=== PATIENT | female | born 1945 ===

== ENCOUNTER 2018-03-13 12:13 | Emergency (ER) | payer MEDICARE ==
[2018-03-13 12:13] VITALS: BMI 43.5
--- NOTE | 2018-03-13 14:23 | ED PDOC ---
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 She states since then, she has had fevers every night. Otherwise, denies back injury and vomiting. denies urinary symptoms PMD: Taiwo Bagley Past Medical History Reviewed: Historical Data, Nursing Documentation, Vital Signs Vital Signs: Last Vital Signs Temp 97 F L 03/13/18 12:29 Pulse 80 03/13/18 12:29 Resp 18 03/13/18 12:29 BP 145/77 03/13/18 12:29 Pulse Ox 95 03/13/18 12:29 - Medical History PMH: Asthma, Diabetes, HTN - Surgical History Surgical History: Other surgeries: right eye surgery - Family History Family History: States: Unknown Family Hx - Living Arrangements Living Arrangements: With Family - Social History Current smoker - smoking cessation education provided: No Alcohol: None Drugs: Denies - Home Medications Home Medications: Ambulatory Orders Medication Instructions Recorded Aspirin [Ecotrin] 81 mg PO DAILY 12/20/16 Carvedilol [Coreg] 12.5 mg PO BID 12/20/16 Fluticasone/Salmeterol [Advair 1 puff IH DAILY PRN 12/20/16 250-50 Diskus] Pentoxifylline [Pentoxil] 400 mg PO TID 12/20/16 Potassium Chloride [Klor-Con 10] 10 meq PO DAILY 12/20/16 RX: Furosemide 40 mg PO DAILY 12/20/16 SITagliptin [Januvia] 50 mg PO DAILY 12/20/16 - Allergies Allergies/Adverse Reactions: Allergies Allergy/AdvReac Type Severity Reaction Status Date / Time No Known Allergies Allergy Verified 07/08/14 11:55 Review of Systems ROS Statement: Except As Marked, All Systems Reviewed And Found Negative Constitutional: Positive for: Fever Gastrointestinal: Positive for: Abdominal Pain (right flank). Negative for: Vomiting Physical Exam - Reviewed Nursing Documentation Reviewed: Yes Vital Signs Reviewed: Yes - Physical Exam Appears: Positive for: No Acute Distress (but pt is obese) Head Exam: Positive for: ATRAUMATIC, NORMOCEPHALIC Skin: Positive for: Normal Color, Warm, Dry Eye Exam: Positive for: Normal appearance ENT: Positive for: Normal ENT Inspection Neck: Positive for: Normal, Painless ROM, Supple Cardiovascular/Chest: Positive for: Regular Rate, Rhythm Respiratory: Positive for: Normal Breath Sounds. Negative for: Accessory Muscle Use, Respiratory Distress Gastrointestinal/Abdominal: Positive for: Soft, Tenderness (to right flank with palpation; pain with movement of abdomen) Back: Positive for: Normal Inspection Extremity: Positive for: Normal ROM Neurologic/Psych: Positive for: Alert, Oriented (x3) - Laboratory Results Result Diagrams: 03/13/18 14:22 - ECG O2 Sat by Pulse Oximetry: 95 (RA) Pulse Ox Interpretation: Normal Medical Decision Making Medical Decision Making: Time: 1422 Initial Impression: flank pain, rule out infection/stone/fracture Initial Plan: --CT Abd & Pelvis --CMP --CBC with differential --Blood culture --Urine culture --Urinalysis 1500 Pt care endorsed to Dr. Sparks pending workup. Scribe Attestation: Documented by Laurel Puga, acting as a scribe for Reji Negro MD. Provider Scribe Attestation: All medical record entries made by the Scribe were at my direction and personally dictated by me. I have reviewed the chart and agree that the record accurately reflects my personal performance of the history, physical exam, medical decision making, and the department course for this patient. I have also personally directed, reviewed, and agree with the discharge instructions and disposition. Disposition - Clinical Impression Clinical Impression: Flank pain - Patient ED Disposition Is Patient to be Admitted: Transfer of Care - Disposition Disposition: Transfer of Care Disposition Time: 15:00 Condition: STABLE Forms: [facility] (Djiboutian) Patient Signed Over To: Sarah Sparks
[2018-03-13 14:33] LABS: SQUAMOUS EPITHIAL 2 /hpf (0-5); URINE BACTERIA OCC (<OCC); URINE BILIRUBIN NEGATIVE (NEGATIVE); URINE BLOOD NEGATIVE (NEGATIVE); URINE CLARITY CLEAR (Clear); URINE COLOR YELLOW (YELLOW); URINE GLUCOSE (UA) NEG (Normal); URINE LEUKOCYTE ESTERASE NEG Leu/uL (Negative); URINE PROTEIN NEGATIVE (NEGATIVE); URINE UROBILINOGEN 0.2-1.0 mg/dL (0.2-1.0)
[2018-03-13 14:37] LABS: BASO # 0.1 K/uL (0.0-0.2); BASO % 1.3 % (0.0-2.0); EOS # 0.2 K/uL (0.0-0.7); EOS % 3.4 % (0.0-4.0); HEMOGLOBIN 11.9 g/dL (12.0-16.0); LYMPH # 1.5 K/uL (1.0-4.3); LYMPH % 28.1 % (20.0-40.0); MEAN CELL VOLUME 89.1 fl (81.0-99.0); MEAN CORPUSCULAR HEMOGLOBIN 29.9 pg (27.0-31.0); MEAN CORPUSCULAR HGB CONC 33.6 g/dL (33.0-37.0); MEAN PLATELET VOLUME 8.4 fl (7.2-11.7); MONO # 0.6 K/uL (0.0-0.8); MONO % 10.4 % (0.0-10.0); NEUT # 3.1 K/uL (1.8-7.0); NEUT % 56.8 % (50.0-75.0); NRBC % 0.1 % (0.0-0.0); RBC 3.99 Mil/uL (3.80-5.20); RED CELL DISTRIBUTION WIDTH 14.7 % (11.5-14.5); WHITE BLOOD COUNT 5.5 K/uL (4.8-10.8)
[2018-03-13 14:41] LABS: ALBUMIN 3.6 g/dL (3.5-5.0); BLOOD UREA NITROGEN 10 mg/dl (7-17); GFR NON-AFRICAN AMERICAN > 60
[2018-03-13 15:00] LABS: ALT/SGPT 18 U/L (9-52); AST/SGOT 30 U/L (14-36)
--- NOTE | 2018-03-13 15:22 | ED PDOC ---
- Laboratory Results Result Diagrams: 03/13/18 14:22 03/13/18 14:22 - ECG O2 Sat by Pulse Oximetry: 95 (RA) Medical Decision Making Medical Decision Making: Time: 15:00 Patient care endorsed by Dr. Childs to Dr. Sparks pending a work up and CT for right flank pain, questionable trauma vs. stone. 1738 Labs reviewed and are within normal limits. Pt reports improvement of pain on reevaluation. CT abdomen shows non-incarcerated right sided hernia, and pt inf ormed of results. She states she will follow up with her PMD in one week, and is advised to take Motrin or Tylenol for pain. Pt is to be picked up by daughter who will assist her at home. ----- Scribe Attestation: Documented by Young Gannon, acting as a scribe for Sarah Sparks MD Provider Scribe Attestation: All medical record entries made by the Scribe were at my direction and personally dictated by me. I have reviewed the chart and agree that the record accurately reflects my personal performance of the history, physical exam, medi tien decision making, and the department course for this patient. I have also personally directed, reviewed, and agree with the discharge instructions and disposition. Disposition - Clinical Impression Clinical Impression: Flank pain, Abdominal pain - POA Present On Arrival: None - Disposition Disposition: Routine/Home Disposition Time: 17:38 Condition: STABLE Additional Instructions: Take Tylenol or Motrin as needed for pain. Follow up with primary doctor swati heller followup of pain and night fevers. Return to the emergency department if pain worsens or if new symptoms develop. Instructions: Acute Abdomen (Belly Pain), Adult (DC) Forms: [facility] (Lao) Print Language: CROATIAN
--- NOTE | 2018-03-13 16:46 | CT ---
Date of service: 03/13/2018 PROCEDURE: CT Abdomen and Pelvis without intravenous contrast HISTORY: abd pain COMPARISON: Chest CT without contrast 01/04/2017. TECHNIQUE: Technique. Contrast dose: None Radiation dose: Total exam DLP = 826.61 mGy-cm. This CT exam was performed using one or more of the following dose reduction techniques: Automated exposure control, adjustment of the mA and/or kV according to patient size, and/or use of iterative reconstruction technique. FINDINGS: LOWER THORAX: Cardiomegaly reiterated. Small hiatal hernia again evident. No pleural or pericardial effusion or infiltrate. LIVER: Upper limits normal liver size. No focal mass appreciable. GALLBLADDER AND BILE DUCTS: Unremarkable. PANCREAS: Unremarkable. No gross lesion or ductal dilatation. SPLEEN: Unremarkable. ADRENALS: Unremarkable. No mass. KIDNEYS AND URETERS: No radiodense urolithiasis, perinephric fluid collection or obstructive uropathy is appreciate bilaterally. The bilateral ureters appear normal caliber overall. VASCULATURE: Unremarkable. No aortic aneurysm. BOWEL: Stomach is collapsed and poorly evaluated. Subcutaneous fat deposition may reflect chronic inflammatory process. Clinically correlate further. Mildly prominent retained fecal material scattered throughout the proximal and mid large-bowel segments, mild otherwise. No bowel obstruction evident. Small bowel appears collapsed diffusely and is unremarkable appearing overall. There is right lower quadrant ventral abdominal hernia appreciated with the opening measuring approximately 4 cm greatest dimension involving an apparent distal small bowel loop without obstruction. No local reaction fluid collection or free intra peritoneal gas. No incarceration pattern appreciable. APPENDIX: Unremarkable. Normal appendix. PERITONEUM: Unremarkable. No free fluid. No free air. LYMPH NODES: Unremarkable. No enlarged lymph nodes. BLADDER: Distended but thin and smooth walled. REPRODUCTIVE: Fibroid uterine changes. BONES: No acute fracture. OTHER FINDINGS: None. IMPRESSION: 1. There is a small ventral abdominal hernia similar to but not definitive for a spigelian hernia at the right lower quadrant anterior abdominal wall essentially in the pelvis involving a short segment of small bowel without pattern of incarceration appreciable. No bowel obstruction associated. See discussion above. 2. Moderate overall fecal retention in the colon. 3. Upper limits normal size liver. 4. Fibroid uterus. 5. No radiodense urolithiasis, perinephric fluid collection or obstructive uropathy is appreciate bilaterally. The bilateral ureters appear normal caliber overall.
[2018-03-13 18:19] VITALS: BP 127/83; PULSE 71; RESP 17; TEMP 98.2
[2018-03-16 13:51] VITALS: O2SAT 95
== END 2018-03-13 18:18 | disposition home or self-care (01) ==
LOC: H.ER 12:13
DX: R10.9 Unspecified abdominal pain (principal); M54.9 Dorsalgia, unspecified; K46.9 Unspecified abdominal hernia without obstruction or gangrene; E11.9 Type 2 diabetes mellitus without complications
CPT/HCPCS: 74176; 80053; 81003; 85025; 87040; 87086; 96374; 99283; J2405

== ENCOUNTER 2018-03-14 09:53 | Inpatient (IN) | payer MEDICARE ==
[2018-03-14 10:00] VITALS: BMI 39.4
[2018-03-14 10:25] LABS: BASO # 0.1 K/uL (0.0-0.2); BASO % 0.9 % (0.0-2.0); EOS # 0.1 K/uL (0.0-0.7); EOS % 1.9 % (0.0-4.0); HEMOGLOBIN 12.4 g/dL (12.0-16.0); LYMPH # 1.1 K/uL (1.0-4.3); LYMPH % 17.8 % (20.0-40.0); MEAN CORPUSCULAR HEMOGLOBIN 29.6 pg (27.0-31.0); MEAN CORPUSCULAR HGB CONC 32.5 g/dL (33.0-37.0); MEAN PLATELET VOLUME 7.7 fl (7.2-11.7); MONO # 0.5 K/uL (0.0-0.8); MONO % 8.5 % (0.0-10.0); NEUT # 4.5 K/uL (1.8-7.0); NEUT % 70.9 % (50.0-75.0); RBC 4.2 Mil/uL (3.80-5.20); RED CELL DISTRIBUTION WIDTH 14.7 % (11.5-14.5); WHITE BLOOD COUNT 6.3 K/uL (4.8-10.8)
[2018-03-14 10:41] LABS: ALBUMIN 3.7 g/dL (3.5-5.0); ALT/SGPT 23 U/L (9-52); AST/SGOT 22 U/L (14-36); BLOOD UREA NITROGEN 8 mg/dl (7-17); CALCIUM 9.1 mg/dL (8.4-10.2); GFR NON-AFRICAN AMERICAN > 60
--- NOTE | 2018-03-14 10:50 | ED PDOC ---
HPI: Abdomen Time Seen by Provider: 03/14/18 10:09 Chief Complaint (Nursing): Abdominal Pain Chief Complaint (Provider): Right flank pain History Per: Patient History/Exam Limitations: no limitations Onset/Duration Of Symptoms: Days Outside of [place] travel?: No Current Symptoms Are (Timing): Still Present Location Of Pain/Discomfort: Other (right flank) Additional History Per: Patient Additional Complaint(s): 72yo female, history of diabetes, hypertension, comes to ER reporting right sided flank/abdominal pain with associated nausea and vomiting. Patient was seen yesterday for same complaints and discharged home. Patient denies any fever, chills, diarrhea or urinary symptoms. Past Medical History Reviewed: Historical Data, Nursing Documentation, Vital Signs Vital Signs: Last Vital Signs Temp 98.7 F 03/14/18 10:22 Pulse 98 H 03/14/18 09:59 Resp 20 03/14/18 09:59 BP 131/72 03/14/18 09:59 Pulse Ox 75 L 03/14/18 09:59 - Medical History PMH: Asthma, Diabetes, HTN - Surgical History Surgical History: - Family History Family History: States: Unknown Family Hx - Home Medications Home Medications: Ambulatory Orders Medication Instructions Recorded Carvedilol [Coreg] 12.5 mg PO Q12 12/20/16 Pentoxifylline [Pentoxil] 400 mg PO Q8 12/20/16 SITagliptin [Januvia] 50 mg PO DAILY 12/20/16 Furosemide [Lasix] 20 mg PO DAILY 03/14/18 Lovastatin 10 mg PO HS 03/14/18 Omeprazole 40 mg PO DAILY 03/14/18 traMADol [Ultram] 50 mg PO Q4 PRN 03/14/18 - Allergies Allergies/Adverse Reactions: Allergies Allergy/AdvReac Type Severity Reaction Status Date / Time No Known Allergies Allergy Verified 07/08/14 11:55 Review of Systems ROS Statement: Except As Marked, All Systems Reviewed And Found Negative Constitutional: Negative for: Fever, Chills Gastrointestinal: Positive for: Nausea, Vomiting, Abdominal Pain. Negative for: Diarrhea Genitourinary Female: Negative for: Dysuria Physical Exam - Reviewed Nursing Documentation Reviewed: Yes Vital Signs Reviewed: Yes - Physical Exam Appears: Positive for: Non-toxic, No Acute Distress Head Exam: Positive for: ATRAUMATIC, NORMAL INSPECTION, NORMOCEPHALIC Skin: Positive for: Normal Color, Warm, DRY Eye Exam: Positive for: Normal appearance Neck: Positive for: Supple Cardiovascular/Chest: Positive for: Regular Rate, Rhythm Respiratory: Positive for: Decreased Breath Sounds. Negative for: Respiratory Distress Gastrointestinal/Abdominal: Positive for: Soft, Tenderness (right flank tenderness) Back: Positive for: Normal Inspection Extremity: Positive for: Normal ROM. Negative for: Pedal Edema Neurologic/Psych: Positive for: Alert, Oriented. Negative for: Motor/Sensory Deficits - Laboratory Results Result Diagrams: 03/14/18 10:18 03/14/18 10:18 - ECG O2 Sat by Pulse Oximetry: 75 Medical Decision Making Medical Decision Making: Impression: Right sided abdominal pain Plan: * UDip * CMP * CBC 11:10 XR abdomen ordered to r/o obstruction Scribe Attestation: Documented by Gem Rendon, acting as a scribe for Tano Ascencio MD. Provider Scribe Attestation: All medical record entries made by the Scribe were at my direction and personally dictated by me. I have reviewed the chart and agree that the record accurately reflects my personal performance of the history, physical exam, medical decision making, and the department course for this patient. I have also personally directed, reviewed, and agree with the discharge instructions and disposition. Disposition - Clinical Impression Clinical Impression: Abdominal pain, Exacerbation of asthma - Patient ED Disposition Is Patient to be Admitted: Yes - Disposition Disposition Time: 13:48 Condition: FAIR Forms: [facility] (Honduran) - Pt Status Changed To: Hospital Disposition Of: Observation - POA Present On Arrival: None
--- NOTE | 2018-03-14 12:20 | CP.PCM.CON ---
<Andria Zavala - Last Filed: 03/14/18 12:25> History of Present Illness - History of Present Illness History of Present Illness: Surgery Consult: Dr. Campos Pt is a 72F with PMHx significant for DM, HTN, HLD & asthma who presents to [facility] with complaints of R groin/back pain x 3 weeks. Pt states that 3 weeks ago, she tripped and caught herself from falling and thinks that she may have twisted her back. Since then she has been having sharp pain in the R groin that radiates to her back. She also admits to subjective fevers only at night. Yesterday, pt states her pain got worse and she came to the ER. She had a CT abdomen/pelvis done at the time and it showed a small R ventral/spigelian hernia. However, pt felt better a few hours later and she was DC home. Overnight/this morning pt reports increasing pain with one episode of non-bloody, non-bilious vomiting so she decided to come back to the ER. Surgery called to evaluate. Currently, pt is resting comfortably but admits to continued pain in the R groin that radiates to her back. She denies any more episodes of vomiting. She states her last BM was yesterday and admits to flatus. Pt states she's usually constipated and therefore doesn't have regular BMs. Denies F/C, N/V, chest pain or SOB at this time. PMHx: HTN, DM, HLD, asthma PSHx: x 2 SocialHx: denies smoking, EtOH/drugs NKDA Review of Systems - Review of Systems All systems: reviewed and no additional remarkable complaints except (as per HPI) Past Patient History - Past Social History Smoking Status: Never Smoked - CARDIAC Hx Hypertension: Yes - PULMONARY Hx Asthma: Yes - ENDOCRINE/METABOLIC Hx Diabetes Mellitus Type 2: Yes - PSYCHIATRIC Hx Substance Use: No - SURGICAL HISTORY Hx Surgeries: Yes Hx Section: Yes (x2) - ANESTHESIA Hx Anesthesia: Yes Hx Anesthesia Reactions: No Meds Allergies/Adverse Reactions: Allergies Allergy/AdvReac Type Severity Reaction Status Date / Time No Known Allergies Allergy Verified 07/08/14 11:55 Physical Exam - Constitutional Appears: Well, No Acute Distress - Head Exam Head Exam: ATRAUMATIC, NORMOCEPHALIC - Eye Exam Eye Exam: Normal appearance - ENT Exam ENT Exam: Mucous Membranes Moist - Respiratory Exam Respiratory Exam: NORMAL BREATHING PATTERN - Cardiovascular Exam Cardiovascular Exam: RRR - GI/Abdominal Exam GI & Abdominal Exam: Soft, Tenderness (in the R groin especially over the iliac crest & R flank. No palpable hernia defect appreciated ). absent: Distended, Rebound - Neurological Exam Neurological exam: Alert, Oriented x3 - Skin Skin Exam: Dry, Warm Results - Vital Signs Recent Vital Signs: Last Vital Signs Temp 98.7 F 03/14/18 10:22 Pulse 81 03/14/18 11:20 Resp 20 03/14/18 11:20 BP 154/77 H 03/14/18 11:20 Pulse Ox 75 L 03/14/18 12:05 - Labs Result Diagrams: 03/14/18 10:18 03/14/18 10:18 Labs: Laboratory Results - last 24 hr 03/14/18 03/14/18 10:18 10:18 WBC 6.3 RBC 4.20 Hgb 12.4 Hct 38.2 MCV 91.0 MCH 29.6 MCHC 32.5 L RDW 14.7 H Plt Count 216 MPV 7.7 Neut % (Auto) 70.9 Lymph % (Auto) 17.8 L [place] % (Auto) 8.5 Eos % (Auto) 1.9 Baso % (Auto) 0.9 Neut # (Auto) 4.5 Lymph # (Auto) 1.1 [place] # (Auto) 0.5 Eos # (Auto) 0.1 Baso # (Auto) 0.1 Sodium 139 Potassium 4.9 Chloride 104 Carbon Dioxide 29 Anion Gap 11 BUN 8 Creatinine 0.8 Est GFR ( Amer) > 60 Est GFR (Non-Af Amer) > 60 Random Glucose 132 H Calcium 9.1 Total Bilirubin 0.3 AST 22 ALT 23 Alkaline Phosphatase 115 Total Protein 7.4 Albumin 3.7 Globulin 3.6 Albumin/Globulin Ratio 1.0 Assessment & Plan - Assessment and Plan (Free Text) Assessment: 72F with R groin/flank pain and R ventral hernia as seen on CT Plan: - keep NPO - IVF - pain management - will discuss further recs with Dr. Andres Zavala <Brian Campos - Last Filed: 03/14/18 14:08> History of Present Illness - History of Present Illness History of Present Illness: Patient was seen and examined at the bedside. Agree with resident's note above. Reports flatus and having bowel movements. Physical Exam - GI/Abdominal Exam Additional comments: soft, tender in the lower abdomen, ND, BS+, no rebound, no guarding, obese, well healed scars in the lower abdomen Results - Vital Signs Recent Vital Signs: Last Vital Signs Temp 98.7 F 03/14/18 10:22 Pulse 78 03/14/18 13:23 Resp 20 03/14/18 11:20 BP 154/77 H 03/14/18 11:20 Pulse Ox 75 L 03/14/18 13:48 - Labs Result Diagrams: 03/14/18 10:18 03/14/18 10:18 Labs: Laboratory Results - last 24 hr 03/14/18 03/14/18 03/14/18 10:18 10:18 12:33 WBC 6.3 RBC 4.20 Hgb 12.4 Hct 38.2 MCV 91.0 MCH 29.6 MCHC 32.5 L RDW 14.7 H Plt Count 216 MPV 7.7 Neut % (Auto) 70.9 Lymph % (Auto) 17.8 L [place] % (Auto) 8.5 Eos % (Auto) 1.9 Baso % (Auto) 0.9 Neut # (Auto) 4.5 Lymph # (Auto) 1.1 [place] # (Auto) 0.5 Eos # (Auto) 0.1 Baso # (Auto) 0.1 pCO2 66 H pO2 53 L HCO3 29.3 H ABG pH 7.32 L ABG Total CO2 36.0 H ABG O2 Saturation 91.1 L ABG Base Excess 5.9 H Chema Test Yes ABG Potassium 4.7 A-a O2 Difference 14.0 Glucose 113 H Lactate 0.4 L FiO2 21.0 Blood Gas Comments Room air,,,,rb Crit Value Read Back N Sodium 139 137.0 Potassium 4.9 Chloride 104 103.0 Carbon Dioxide 29 Anion Gap 11 BUN 8 Creatinine 0.8 Est GFR ( Amer) > 60 Est GFR (Non-Af Amer) > 60 Random Glucose 132 H Calcium 9.1 Total Bilirubin 0.3 AST 22 ALT 23 Alkaline Phosphatase 115 Total Protein 7.4 Albumin 3.7 Globulin 3.6 Albumin/Globulin Ratio 1.0 Arterial Blood Potassium 4.7 Assessment & Plan - Assessment and Plan (Free Text) Plan: - Keep NPO - Admit to medical service - Repeat CT scan with po contrast - IV fluids - Repeat labs in am - Will follow
[2018-03-14 13:00] LABS: ABG ALLEN TEST YES; ARTERIAL BLOOD GAS HCO3 29.3 mmol/L (21-28); ARTERIAL BLOOD GAS O2 SAT 91.1 % (95-98); ARTERIAL BLOOD GAS PCO2 66 mm/Hg (35-45); ARTERIAL BLOOD GAS PH 7.32 (7.35-7.45); ARTERIAL BLOOD GAS PO2 53 mm/Hg (80-100)
[2018-03-14] MEDS ORDERED: Albuterol-Ipratrop 3 mg / 0.5 (3 ml) UD IH STA ×2 (13:03→13:04)
--- NOTE | 2018-03-14 13:44 | RAD ---
Date of service: 03/14/2018 HISTORY: cough COMPARISON: 01/24/2017 FINDINGS: LUNGS: Technically limited. No infiltrate. PLEURA: No significant pleural effusion identified, no pneumothorax apparent. CARDIOVASCULAR: Normal. OSSEOUS STRUCTURES: No significant abnormalities. VISUALIZED UPPER ABDOMEN: Normal. OTHER FINDINGS: None. IMPRESSION: No active disease.
--- NOTE | 2018-03-14 13:51 | RAD ---
Date of service: 03/14/2018 HISTORY: r/o obstruction COMPARISON: No prior. FINDINGS: BOWEL: Mild retained feces. No evidence of bowel obstruction. No hepatic or splenic enlargement. No masses or abnormal intra-abdominal calcifications. No evidence of free intraperitoneal air. BONES: Normal. OTHER FINDINGS: None. IMPRESSION: No active disease.
[2018-03-14] MEDS ORDERED: Albuterol-Ipratrop 3 mg / 0.5 (3 ml) UD ONE (13:54)
[2018-03-14] MEDS ORDERED: Iohexol 240 (50 ml) PO ONE (14:02)
[2018-03-14] MEDS ORDERED: Oxycodone/Acetaminophen 5/325 mg Tab PO PRN (14:44)
--- NOTE | 2018-03-14 15:00 | CP.PCM.HP ---
<OumarMckenzie - Last Filed: 03/14/18 16:51> History of Present Illness - History of Present Illness History of Present Illness: 72 y/o F with hx of DMII, HTN, peripheral artery disease, and Asthma presents to the ED with complaints of right sided flank pain that began 3 weeks ago status post fall from bed. She also reports some nausea & vomitting, but denied any fever, chills or dysuria. She presented to the ED yesterday because the pain worsened. At that time, UA was performed and negative for leukocyte esterase or nitrates, blood culture showed no growth, CT Abd & pelvis showed ventral hernia, CMP was unremarkable, and CBC showed Hgb of 11.9. Patient's pain improved, and she was discharged home. After going home, patient reports her pain worsened again this morning, and she returned to ED. PMD: Dr. Bagley PMH: DMII, HTN, Asthma Home Meds: see below Allergies: None PSurghx: , right eye surgery Famhx: unknown Sochx: never smoked; is a smoker Present on Admission - Present on Admission Any Indicators Present on Admission: No History of DVT/PE: No History of Uncontrolled Diabetes: No Urinary Catheter: No Decubitus Ulcer Present: No Review of Systems - Constitutional Additional comments: denies fever or chills - Cardiovascular Additional comments: denies chest pain - Respiratory Additional comments: denies shortness of breath - Gastrointestinal Gastrointestinal: Constipation - Genitourinary Additional comments: right flank pain, denies dysuria Past Patient History - Past Social History Smoking Status: Never Smoked - CARDIAC Hx Hypertension: Yes - PULMONARY Hx Asthma: Yes - ENDOCRINE/METABOLIC Hx Diabetes Mellitus Type 2: Yes - PSYCHIATRIC Hx Substance Use: No - SURGICAL HISTORY Hx Surgeries: Yes Hx Section: Yes (x2) - ANESTHESIA Hx Anesthesia: Yes Hx Anesthesia Reactions: No Meds Allergies/Adverse Reactions: Allergies Allergy/AdvReac Type Severity Reaction Status Date / Time No Known Allergies Allergy Verified 07/08/14 11:55 Physical Exam - Constitutional Additional comments: SPO2 75 on room air - Head Exam Head Exam: ATRAUMATIC, NORMAL INSPECTION - ENT Exam ENT Exam: Mucous Membranes Moist - Neck Exam Neck exam: Positive for: Full Rom - Respiratory Exam Respiratory Exam: Clear to Auscultation Bilateral - Cardiovascular Exam Cardiovascular Exam: REGULAR RHYTHM, +S1, +S2 - GI/Abdominal Exam Additional comments: large pannus, soft with tenderness to right flank, no rigidity - Extremities Exam Additional comments: hyperpigmentation noted on b/l lower legs - Neurological Exam Neurological exam: Alert, Oriented x3 Results - Vital Signs Recent Vital Signs: Last Vital Signs Temp 98.7 F 03/14/18 10:22 Pulse 78 03/14/18 13:23 Resp 20 03/14/18 11:20 BP 154/77 H 03/14/18 11:20 Pulse Ox 75 L 03/14/18 13:48 - Labs Result Diagrams: 03/14/18 10:18 03/14/18 10:18 Labs: Laboratory Results - last 24 hr 03/14/18 03/14/18 03/14/18 10:18 10:18 12:33 WBC 6.3 RBC 4.20 Hgb 12.4 Hct 38.2 MCV 91.0 MCH 29.6 MCHC 32.5 L RDW 14.7 H Plt Count 216 MPV 7.7 Neut % (Auto) 70.9 Lymph % (Auto) 17.8 L [place] % (Auto) 8.5 Eos % (Auto) 1.9 Baso % (Auto) 0.9 Neut # (Auto) 4.5 Lymph # (Auto) 1.1 [place] # (Auto) 0.5 Eos # (Auto) 0.1 Baso # (Auto) 0.1 pCO2 66 H pO2 53 L HCO3 29.3 H ABG pH 7.32 L ABG Total CO2 36.0 H ABG O2 Saturation 91.1 L ABG Base Excess 5.9 H Chema Test Yes ABG Potassium 4.7 A-a O2 Difference 14.0 Glucose 113 H Lactate 0.4 L FiO2 21.0 Blood Gas Comments Room air,,,,rb Crit Value Read Back N Sodium 139 137.0 Potassium 4.9 Chloride 104 103.0 Carbon Dioxide 29 Anion Gap 11 BUN 8 Creatinine 0.8 Est GFR ( Amer) > 60 Est GFR (Non-Af Amer) > 60 Random Glucose 132 H Calcium 9.1 Total Bilirubin 0.3 AST 22 ALT 23 Alkaline Phosphatase 115 Total Protein 7.4 Albumin 3.7 Globulin 3.6 Albumin/Globulin Ratio 1.0 Arterial Blood Potassium 4.7 Assessment & Plan - Assessment and Plan (Free Text) Assessment: 72 y/o F with hx of DMII, HTN, Peripheral artery disease, and Asthma presents to the ED with right sided flank pain. 1. Right flank pain (Acute, symptomatic) -Possibly due to small ventral hernia -Continue pain medication regimen -Surgery consulted; Will fu recommendations 2. Hypoxemia (Acute) -SPo2 75L on room air. -D dimer elevated at 1073. CT angio with PE protocol ordered. Will fu results. -Continue HF oxygen. 3. Asthma (Acute on Chronic) -Ordered duoneb QID. -Ordered albuterol prn. -Continue to monitor. 4. HTN (Chronic, asymptomatic) -Continue Coreg 12.5 mg PO BID. 5. DMII(Chronic, asymptomatic)) -Continue Januvia 50mg PO QD. -Hypoglycemia protocol in place. 6. Peripheral Artery Disease (Chronic with b/l lower leg hyperpigmentation) -Continue pentoxifylline 400mg PO TID. <Ever Penn D - Last Filed: 03/14/18 17:36> Results - Vital Signs Recent Vital Signs: Last Vital Signs Temp 98.7 F 03/14/18 10:22 Pulse 72 03/14/18 15:02 Resp 20 03/14/18 17:05 BP 142/78 03/14/18 15:02 Pulse Ox 100 03/14/18 15:02 - Labs Result Diagrams: 03/14/18 10:18 03/14/18 10:18 Labs: Laboratory Results - last 24 hr 03/14/18 03/14/18 03/14/18 10:18 10:18 12:33 WBC 6.3 RBC 4.20 Hgb 12.4 Hct 38.2 MCV 91.0 MCH 29.6 MCHC 32.5 L RDW 14.7 H Plt Count 216 MPV 7.7 Neut % (Auto) 70.9 Lymph % (Auto) 17.8 L [place] % (Auto) 8.5 Eos % (Auto) 1.9 Baso % (Auto) 0.9 Neut # (Auto) 4.5 Lymph # (Auto) 1.1 [place] # (Auto) 0.5 Eos # (Auto) 0.1 Baso # (Auto) 0.1 D-Dimer, Quantitative pCO2 66 H pO2 53 L HCO3 29.3 H ABG pH 7.32 L ABG Total CO2 36.0 H ABG O2 Saturation 91.1 L ABG Base Excess 5.9 H Chema Test Yes ABG Potassium 4.7 A-a O2 Difference 14.0 Glucose 113 H Lactate 0.4 L FiO2 21.0 Blood Gas Comments Room air,,,,rb Crit Value Read Back N Sodium 139 137.0 Potassium 4.9 Chloride 104 103.0 Carbon Dioxide 29 Anion Gap 11 BUN 8 Creatinine 0.8 Est GFR ( Amer) > 60 Est GFR (Non-Af Amer) > 60 POC Glucose (mg/dL) Random Glucose 132 H Calcium 9.1 Total Bilirubin 0.3 AST 22 ALT 23 Alkaline Phosphatase 115 Total Protein 7.4 Albumin 3.7 Globulin 3.6 Albumin/Globulin Ratio 1.0 Arterial Blood Potassium 4.7 03/14/18 03/14/18 15:02 15:36 WBC RBC Hgb Hct MCV MCH MCHC RDW Plt Count MPV Neut % (Auto) Lymph % (Auto) [place] % (Auto) Eos % (Auto) Baso % (Auto) Neut # (Auto) Lymph # (Auto) [place] # (Auto) Eos # (Auto) Baso # (Auto) D-Dimer, Quantitative 1073 H pCO2 pO2 HCO3 ABG pH ABG Total CO2 ABG O2 Saturation ABG Base Excess Chema Test ABG Potassium A-a O2 Difference Glucose Lactate FiO2 Blood Gas Comments Crit Value Read Back Sodium Potassium Chloride Carbon Dioxide Anion Gap BUN Creatinine Est GFR ( Amer) Est GFR (Non-Af Amer) POC Glucose (mg/dL) 116 H Random Glucose Calcium Total Bilirubin AST ALT Alkaline Phosphatase Total Protein Albumin Globulin Albumin/Globulin Ratio Arterial Blood Potassium Attending/Attestation - Attestation I have personally seen and examined this patient.: Yes I have fully participated in the care of the patient.: Yes I have reviewed all pertinent clinical information: Yes
[2018-03-14] MEDS ORDERED: Iohexol 240 (50 ml) ONE (15:09)
[2018-03-14] MEDS ORDERED: Glucagon Recombinant 1 mg Inj IM PRN (15:24)
[2018-03-14] MEDS ORDERED: Dextrose 50% SYRINGE Inj (50 ml) IV PRN (15:24)
[2018-03-14] MEDS ORDERED: Albuterol-Ipratrop 3 mg / 0.5 (3 ml) UD INH PRN (15:30)
[2018-03-14] MEDS ORDERED: Albuterol 0.083% Inhal Sol (2.5 mg/3 mL) UD INH PRN (15:32)
--- NOTE | 2018-03-14 15:59 | CARD ---
APPROVED REPORT Date of service: 03/14/2018 EKG Measurement Heart [id number] <Conclusion> Normal sinus rhythm Normal ECG
[2018-03-14] MEDS ORDERED: Iodixanol 320 MG/ML 100 ML BOTTLE IV ONE (16:00)
[2018-03-14] MEDS ORDERED: Sodium Chloride 0.9% 50 ML IV ONE (16:00)
[2018-03-14] MEDS ORDERED: methylPREDNISolone 40 MG in Sodium Chloride 0.9% 50 ML IVPB SCH (17:00)
--- NOTE | 2018-03-14 17:24 | CT ---
Date of service: 03/14/2018 PROCEDURE: CT Abdomen and Pelvis with contrast HISTORY: r/o obstruction COMPARISON: Noncontrast abdomen pelvis CT 03/13/2018. TECHNIQUE: Helical CT of the abdomen and pelvis was performed following oral contrast administration only. Intravenous contrast was not administered as per referring physician request. Coronal and sagittal reformats were generated. contrast dose: None Radiation dose: Total exam DLP = 794.34 mGy-cm. This CT exam was performed using one or more of the following dose reduction techniques: Automated exposure control, adjustment of the mA and/or kV according to patient size, and/or use of iterative reconstruction technique. FINDINGS: LOWER THORAX: Cardiomegaly and a small hiatal hernia reiterated. Limited bilateral basilar dependent atelectasis is now identified. LIVER: Artifact from the patient's arms obscure evaluation of the liver which is likely stable in the interval. No definite suspicious interval density appreciated. GALLBLADDER AND BILE DUCTS: Unremarkable once again. PANCREAS: Unremarkable once again. SPLEEN: Nonfocal. ADRENALS: Unremarkable. No mass. KIDNEYS AND URETERS: No obstructive uropathy or perinephric reaction bilaterally once again. VASCULATURE: Unremarkable. No aortic aneurysm. BOWEL: No bowel obstruction appreciable. Small-bowel remains nondilated and oral contrast enters into segment small bowel involved in the right lower quadrant ventral abdominal hernia but has not yet exited the herniated loop. Gas and relatively prominent amount amount of retained fecal material seen in the ascending and proximal transverse colon with gas distending the transverse colon somewhat and minimally distending the distal large bowel. Stomach is only minimally distended with retained oral contrast material at the time of imaging. APPENDIX: Normal appendix. PERITONEUM: Unremarkable. No free fluid. No free air. LYMPH NODES: Unremarkable. No enlarged lymph nodes. BLADDER: Unremarkable. REPRODUCTIVE: Lobular uterine shape with occasional calcifications suggest uterine fibroid disease. BONES: No acute fracture. OTHER FINDINGS: None. IMPRESSION: Stable hernia at the right lower quadrant abdominal wall involving short segment of small bowel. No bowel obstruction appreciable at this time. Overall, no signal change in the abdomen pelvis anatomy as compared prior CT 03/13/2018. Clinical follow-up recommended.
--- NOTE | 2018-03-14 18:05 | CT ---
Date of service: 03/14/2018 PROCEDURE: CT Chest with contrast (Pulmonary Angiogram) HISTORY: hypoxemia COMPARISON: None available. TECHNIQUE: Axial computed tomography images were obtained of the chest in the pulmonary arterial phase of enhancement. Coronal and sagittal reformatted images were created and reviewed. Intravenous contrast dose: Visipaque 320, 95 cc Radiation dose: Total exam DLP = 368.72 mGy-cm. This CT exam was performed using one or more of the following dose reduction techniques: Automated exposure control, adjustment of the mA and/or kV according to patient size, and/or use of iterative reconstruction technique. FINDINGS: PULMONARY ARTERIES: There is a filling defect identified at the proximal main right upper lobe pulmonary artery compatible with pulmonary embolus. Extensive artifacts are identified throughout the chest caused by inability of patient to position her arms limiting the examination, particularly at medium and small branch vessels. The main pulmonary artery segment measures up to 3.8 cm and pulmonary artery hypertension is in question. Borderline right ventricular strain as the interventricular septum appears straightened but the right lateral ventricle volume appears smaller than the left lateral ventricle maintaining and normal appearing RV: LV ratio. There is right atrial enlargement however. AORTA: No acute findings. No thoracic aortic aneurysm. LUNGS: Linear atelectasis or fibrosis in the bilateral lung bases with no definite alveolitis. Central airways appear clear. PLEURAL SPACES: Unremarkable. No effusion or pneumothorax. HEART: Cardiomegaly. LYMPH NODES: No lymphadenopathy. BONES, CHEST WALL: Unremarkable. No fracture or destructive lesion OTHER FINDINGS: No gross pathology at the visualized upper abdomen however other gross artifacts from the arms and obese body habitus making this area of the skin nearly nondiagnostic. IMPRESSION: Right upper lobe pulmonary embolus it main right upper lobe pulmonary artery. No definitive additional pulmonary emboli identified. Artifacts by the patient's arms as well as obese body habitus limit the interpretation. Cardiomegaly. Pulmonary artery hypertension is in question. Borderline right ventricular strain pattern. Right atrial enlargement noted. Linear atelectasis bilateral bases. Findings discussed with Dr. Penn with written down and read back verification 03/14/2018, 5:45 p.m..
[2018-03-15] MEDS: Enoxaparin 120 mg Syringe SC SCH ×3 (05:39→23:34)
[2018-03-15] MEDS: MethylPREDNISolone 40 mg Vial IVP SCH ×4 (05:40→23:39)
[2018-03-15 05:59] LABS: BASO % 0.3 % (0.0-2.0); HEMOGLOBIN 12.5 g/dL (12.0-16.0); LYMPH # 0.8 K/uL (1.0-4.3); LYMPH % 15.7 % (20.0-40.0); MEAN CELL VOLUME 91.1 fl (81.0-99.0); MEAN CORPUSCULAR HEMOGLOBIN 29.3 pg (27.0-31.0); MEAN CORPUSCULAR HGB CONC 32.2 g/dL (33.0-37.0); MEAN PLATELET VOLUME 8.7 fl (7.2-11.7); MONO # 0.1 K/uL (0.0-0.8); MONO % 1.9 % (0.0-10.0); NEUT # 4.2 K/uL (1.8-7.0); NEUT % 82.1 % (50.0-75.0); NRBC % 0.1 % (0.0-0.0); RBC 4.27 Mil/uL (3.80-5.20); RED CELL DISTRIBUTION WIDTH 14.7 % (11.5-14.5); WHITE BLOOD COUNT 5.1 K/uL (4.8-10.8)
[2018-03-15 06:00] LABS: PROTHROMBIN TIME 11.4 Seconds (9.8-13.1)
[2018-03-15 06:02] LABS: PARTIAL THROMBOPLASTIN TIME 25.3 Seconds (25.6-37.1)
[2018-03-15 06:29] LABS: BLOOD UREA NITROGEN 12 mg/dl (7-17); CALCIUM 9.8 mg/dL (8.4-10.2); GFR NON-AFRICAN AMERICAN > 60
[2018-03-15] MEDS ORDERED: Sod Polystyrene Sulf 15 gm/60 ml Susp PO ONE ×2 (07:02→11:24)
--- NOTE | 2018-03-15 07:06 | CARD ---
APPROVED REPORT Date of service: 03/15/2018 EKG Measurement Heart [id number] <Conclusion> Sinus bradycardia with sinus arrhythmia Low voltage QRS Borderline ECG
[2018-03-15] MEDS: Albuterol-Ipratrop 3 mg / 0.5 (3 ml) UD INH SCH ×5 (07:45→19:08)
[2018-03-15] MEDS ORDERED: Enoxaparin 40 mg Syringe SC SCH (09:00)
[2018-03-15 09:02] LABS: BLOOD UREA NITROGEN 12 mg/dl (7-17); CALCIUM 9.4 mg/dL (8.4-10.2); GFR NON-AFRICAN AMERICAN > 60
[2018-03-15] MEDS: Lidocaine 5% Patch TD SCH (09:14)
[2018-03-15] MEDS: Pantoprazole 40 mg EC Tab PO SCH (09:15)
--- NOTE | 2018-03-15 10:37 | CP.PCM.PN ---
<AceevelniRenato mcguire - Last Filed: 03/15/18 11:34> Subjective - Date & Time of Evaluation Date of Evaluation: 03/15/18 Time of Evaluation: 10:35 - Subjective Subjective: Surgery: Dr. Campos Pt seen and examined. Continue to have R groin/back pain, unchanged from yesterday. Passing flatus. No N/V, no BM. CT chest showed PE. Objective - Vital Signs/Intake and Output Vital Signs (last 24 hours): Temp Pulse Resp BP Pulse Ox 98 F 61 18 127/73 100 03/15/18 08:36 03/15/18 08:36 03/15/18 08:36 03/15/18 09:16 03/15/18 08:36 - Medications Medications: Current Medications Acetaminophen (Tylenol 325mg Tab) 975 mg PO Q8 PRN PRN Reason: Pain, Mild (1-3) Albuterol Sulfate (Albuterol 0.083% Inhal [place] (2.5 Mg/3 Ml) Ud) 2.5 mg INH RQ4 PRN PRN Reason: Shortness of Breath Albuterol/Ipratropium (Duoneb 3 Mg/0.5 Mg (3 Ml) Ud) 3 ml INH RQ4 PRN PRN Reason: Shortness of Breath Albuterol/Ipratropium (Duoneb 3 Mg/0.5 Mg (3 Ml) Ud) 3 ml INH RQID KILO Last Admin: 03/15/18 07:45 Dose: 3 ml Carvedilol (Coreg) 12.5 mg PO Q12 KILO Last Admin: 03/15/18 09:16 Dose: 12.5 mg Dextrose (Dextrose 50% Inj) 0 ml IV STAT PRN; Protocol PRN Reason: Hypoglycemia Protocol Dextrose (Glutose 15) 0 gm PO ONCE PRN; Protocol PRN Reason: Hypoglycemia Protocol Enoxaparin Sodium (Lovenox) 110 mg SC Q12 KILO; Protocol Last Admin: 03/15/18 09:15 Dose: 110 mg Furosemide (Lasix) 20 mg PO DAILY [facility] Last Admin: 03/15/18 09:16 Dose: 20 mg Glucagon (Glucagen Diagnostic Kit) 0 mg IM STAT PRN; Protocol PRN Reason: Hypoglycemia Protocol Ketorolac Tromethamine (Toradol) 15 mg IVP Q6 PRN PRN Reason: Pain, moderate (4-7) Lidocaine (Lidoderm) 1 ea TD DAILY [facility] Last Admin: 03/15/18 09:14 Dose: 1 ea Methylprednisolone (Solu-Medrol) 40 mg IVP Q8H [facility] Last Admin: 03/15/18 06:18 Dose: 40 mg Oxycodone/Acetaminophen (Percocet 5/325 Mg Tab) 2 tab PO Q4 PRN PRN Reason: Pain, severe (8-10) Stop: 03/17/18 14:45 Pantoprazole Sodium (Protonix Ec Tab) 40 mg PO DAILY [facility] Last Admin: 03/15/18 09:15 Dose: 40 mg Pentoxifylline (Pentoxil) 400 mg PO Q8 [facility] Last Admin: 03/15/18 09:15 Dose: 400 mg Pravastatin Sodium (Pravachol) 10 mg PO HS [facility] Last Admin: 03/14/18 22:17 Dose: Not Given Sitagliptin Phosphate (Januvia) 50 mg PO DAILY [facility] Last Admin: 03/15/18 09:15 Dose: 50 mg - Labs Labs: 03/15/18 04:25 03/15/18 08:42 PT 11.4 Seconds (9.8-13.1) 03/15/18 04:25 INR 1.0 03/15/18 04:25 APTT 25.3 Seconds (25.6-37.1) L 03/15/18 04:25 - Constitutional Appears: Non-toxic, No Acute Distress - Head Exam Head Exam: ATRAUMATIC, NORMOCEPHALIC - Eye Exam Eye Exam: EOMI - ENT Exam ENT Exam: Mucous Membranes Moist - Neck Exam Neck Exam: Full ROM - Respiratory Exam Respiratory Exam: NORMAL BREATHING PATTERN. absent: Accessory Muscle Use, Respiratory Distress Additional comments: on vapotherm - GI/Abdominal Exam GI & Abdominal Exam: Soft, Tenderness (R groin). absent: Distended, Firm, Guarding, Rigid - Extremities Exam Extremities Exam: absent: Calf Tenderness, Pedal Edema - Back Exam Additional comments: R lower back pain - Neurological Exam Neurological Exam: Alert, Awake, Oriented x3 - Psychiatric Exam Psychiatric exam: Normal Affect, Normal Mood Assessment and Plan - Assessment and Plan (Free Text) Assessment: 72F with R groin/flank pain and R ventral hernia as seen on CT -F/U KUB, if progression of contrast is seen, pt can be started on regular diet -If regular diet is tolerated, pt is clear for D/C from surgical standpoint and may follow up outpatient in office -d/w attending Chaparrita PGY4 <Brian Campos - Last Filed: 03/15/18 11:56> Subjective - Subjective Subjective: Patient was seen and examined at the bedside. Agree with resident's note above. States that pain is better, passing flatus. Oral contrast is seen in the colon on abdominal X-ray this morning. Objective - Vital Signs/Intake and Output Vital Signs (last 24 hours): Temp Pulse Resp BP Pulse Ox 98 F 61 18 127/73 100 03/15/18 08:36 03/15/18 08:36 03/15/18 11:04 03/15/18 09:16 03/15/18 08:36 - Medications Medications: Current Medications Acetaminophen (Tylenol 325mg Tab) 975 mg PO Q8 PRN PRN Reason: Pain, Mild (1-3) Albuterol Sulfate (Albuterol 0.083% Inhal [place] (2.5 Mg/3 Ml) Ud) 2.5 mg INH RQ4 PRN PRN Reason: Shortness of Breath Albuterol/Ipratropium (Duoneb 3 Mg/0.5 Mg (3 Ml) Ud) 3 ml INH RQ4 PRN PRN Reason: Shortness of Breath Albuterol/Ipratropium (Duoneb 3 Mg/0.5 Mg (3 Ml) Ud) 3 ml INH RQID KILO Last Admin: 03/15/18 11:31 Dose: Not Given Carvedilol (Coreg) 12.5 mg PO Q12 [facility] Last Admin: 03/15/18 09:16 Dose: 12.5 mg Dextrose (Dextrose 50% Inj) 0 ml IV STAT PRN; Protocol PRN Reason: Hypoglycemia Protocol Dextrose (Glutose 15) 0 gm PO ONCE PRN; Protocol PRN Reason: Hypoglycemia Protocol Enoxaparin Sodium (Lovenox) 110 mg SC Q12 [facility]; Protocol Last Admin: 03/15/18 09:15 Dose: 110 mg Furosemide (Lasix) 20 mg PO DAILY [facility] Last Admin: 03/15/18 09:16 Dose: 20 mg Glucagon (Glucagen Diagnostic Kit) 0 mg IM STAT PRN; Protocol PRN Reason: Hypoglycemia Protocol Ketorolac Tromethamine (Toradol) 15 mg IVP Q6 PRN PRN Reason: Pain, moderate (4-7) Lidocaine (Lidoderm) 1 ea TD DAILY [facility] Last Admin: 03/15/18 09:14 Dose: 1 ea Methylprednisolone (Solu-Medrol) 40 mg IVP Q8H [facility] Last Admin: 03/15/18 06:18 Dose: 40 mg Oxycodone/Acetaminophen (Percocet 5/325 Mg Tab) 2 tab PO Q4 PRN PRN Reason: Pain, severe (8-10) Stop: 03/17/18 14:45 Pantoprazole Sodium (Protonix Ec Tab) 40 mg PO DAILY [facility] Last Admin: 03/15/18 09:15 Dose: 40 mg Pentoxifylline (Pentoxil) 400 mg PO Q8 [facility] Last Admin: 03/15/18 09:15 Dose: 400 mg Pravastatin Sodium (Pravachol) 10 mg PO HS [facility] Last Admin: 03/14/18 22:17 Dose: Not Given Sitagliptin Phosphate (Januvia) 50 mg PO DAILY [facility] Last Admin: 03/15/18 09:15 Dose: 50 mg - Labs Labs: 03/15/18 04:25 03/15/18 08:42 PT 11.4 Seconds (9.8-13.1) 03/15/18 04:25 INR 1.0 03/15/18 04:25 APTT 25.3 Seconds (25.6-37.1) L 03/15/18 04:25 - GI/Abdominal Exam Additional comments: soft, much improved tenderness, ND, BS+, no rebound, no guarding, well healed scars from prior surgeries Assessment and Plan - Assessment and Plan (Free Text) Assessment: - Start clear liquid diet, advance as tolerated - Taking into account patient's comorbities and current diagnosis of PE and the fact that hernia is not obstruction will hold off on surgical intervention at present time - Continue care as per medical team - Will follow
--- NOTE | 2018-03-15 12:34 | CP.PCM.PN ---
<Mckenzie Oseguera - Last Filed: 03/15/18 17:35> Subjective - Date & Time of Evaluation Date of Evaluation: 03/15/18 Time of Evaluation: 10:07 - Subjective Subjective: Patient was seen and examined this AM. She is on High flow 20LPM at 70%. Patient is still c/o right sided flank pain, but she states it has improved since yesterday. She denies fever, chills, nausea, vomitting, chest pain or shortness of breath. Objective - Vital Signs/Intake and Output Vital Signs (last 24 hours): Temp Pulse Resp BP Pulse Ox 98 F 61 18 127/73 100 03/15/18 08:36 03/15/18 08:36 03/15/18 11:04 03/15/18 09:16 03/15/18 08:36 - Medications Medications: Current Medications Acetaminophen (Tylenol 325mg Tab) 975 mg PO Q8 PRN PRN Reason: Pain, Mild (1-3) Albuterol Sulfate (Albuterol 0.083% Inhal Jerica (2.5 Mg/3 Ml) Ud) 2.5 mg INH RQ4 PRN PRN Reason: Shortness of Breath Albuterol/Ipratropium (Duoneb 3 Mg/0.5 Mg (3 Ml) Ud) 3 ml INH RQ4 PRN PRN Reason: Shortness of Breath Albuterol/Ipratropium (Duoneb 3 Mg/0.5 Mg (3 Ml) Ud) 3 ml INH RQID [facility] Last Admin: 03/15/18 12:03 Dose: 3 ml Carvedilol (Coreg) 12.5 mg PO Q12 [facility] Last Admin: 03/15/18 09:16 Dose: 12.5 mg Dextrose (Dextrose 50% Inj) 0 ml IV STAT PRN; Protocol PRN Reason: Hypoglycemia Protocol Dextrose (Glutose 15) 0 gm PO ONCE PRN; Protocol PRN Reason: Hypoglycemia Protocol Enoxaparin Sodium (Lovenox) 110 mg SC Q12 [facility]; Protocol Last Admin: 03/15/18 09:15 Dose: 110 mg Furosemide (Lasix) 20 mg PO DAILY [facility] Last Admin: 03/15/18 09:16 Dose: 20 mg Glucagon (Glucagen Diagnostic Kit) 0 mg IM STAT PRN; Protocol PRN Reason: Hypoglycemia Protocol Ketorolac Tromethamine (Toradol) 15 mg IVP Q6 PRN PRN Reason: Pain, moderate (4-7) Lidocaine (Lidoderm) 1 ea TD DAILY [facility] Last Admin: 03/15/18 09:14 Dose: 1 ea Methylprednisolone (Solu-Medrol) 40 mg IVP Q8H [facility] Last Admin: 03/15/18 06:18 Dose: 40 mg Oxycodone/Acetaminophen (Percocet 5/325 Mg Tab) 2 tab PO Q4 PRN PRN Reason: Pain, severe (8-10) Stop: 03/17/18 14:45 Pantoprazole Sodium (Protonix Ec Tab) 40 mg PO DAILY [facility] Last Admin: 03/15/18 09:15 Dose: 40 mg Pentoxifylline (Pentoxil) 400 mg PO Q8 [facility] Last Admin: 03/15/18 09:15 Dose: 400 mg Pravastatin Sodium (Pravachol) 10 mg PO HS [facility] Last Admin: 03/14/18 22:17 Dose: Not Given Sitagliptin Phosphate (Januvia) 50 mg PO DAILY [facility] Last Admin: 03/15/18 09:15 Dose: 50 mg - Labs Labs: 03/15/18 04:25 03/15/18 08:42 PT 11.4 Seconds (9.8-13.1) 03/15/18 04:25 INR 1.0 03/15/18 04:25 APTT 25.3 Seconds (25.6-37.1) L 03/15/18 04:25 - Constitutional Appears: No Acute Distress - Head Exam Head Exam: ATRAUMATIC, NORMAL INSPECTION - Respiratory Exam Respiratory Exam: Clear to Ausculation Bilateral - Cardiovascular Exam Cardiovascular Exam: REGULAR RHYTHM, +S1, +S2 - GI/Abdominal Exam Additional comments: large pannus,soft, mildly tender to right flank/groin area - Extremities Exam Additional comments: hyperpigmentation of b/l lower legs with tenderness to dorsal aspect of left lower leg; distal pulses present b/l - Neurological Exam Additional comments: A & O x 3 - Psychiatric Exam Psychiatric exam: Normal Affect, Normal Mood Assessment and Plan - Assessment and Plan (Free Text) Assessment: 72 y/o F with hx of DMII, HTN, Peripheral artery disease, and Asthma presents to the ED with right sided flank pain found to have Acute PE. 1. Pulmonary Embolus (Acute) -Continue therapeutic lovenox. 2. Right flank pain (Acute, symptomatic) - small ventral hernia -Continue pain medication regimen -Surgery recommendations appreciated- surgical interventions at this time given that hernia not obstructed. 3. Hypoxemia (Acute) Continue HF oxygen. -D dimer elevated at 1073. CT angio with PE protocol ordered. Will fu results. 4. Asthma (Acute on Chronic) -Continue duoneb QID. -Continue albuterol prn. -Continue to monitor. 5. HTN (Chronic, asymptomatic) -Continue Coreg 12.5 mg PO BID. 6. DMII(Chronic, asymptomatic)) -Continue Januvia 50mg PO QD. -Hypoglycemia protocol in place. 7. Peripheral Artery Disease (Chronic with b/l lower leg hyperpigmentation) -Continue pentoxifylline 400mg PO TID. 8. DVT prophylaxis -On therapeutic lovenox. <Santa Mendoza - Last Filed: 03/15/18 18:45> Objective - Vital Signs/Intake and Output Vital Signs (last 24 hours): Temp Pulse Resp BP Pulse Ox 97.5 F L 72 18 144/78 98 03/15/18 16:11 03/15/18 16:11 03/15/18 16:11 03/15/18 16:11 03/15/18 16:11 - Medications Medications: Current Medications Acetaminophen (Tylenol 325mg Tab) 975 mg PO Q8 PRN PRN Reason: Pain, Mild (1-3) Albuterol Sulfate (Albuterol 0.083% Inhal Jerica (2.5 Mg/3 Ml) Ud) 2.5 mg INH RQ4 PRN PRN Reason: Shortness of Breath Albuterol/Ipratropium (Duoneb 3 Mg/0.5 Mg (3 Ml) Ud) 3 ml INH RQ4 PRN PRN Reason: Shortness of Breath Albuterol/Ipratropium (Duoneb 3 Mg/0.5 Mg (3 Ml) Ud) 3 ml INH RQID [facility] Last Admin: 03/15/18 15:16 Dose: 3 ml Carvedilol (Coreg) 12.5 mg PO Q12 [facility] Last Admin: 03/15/18 09:16 Dose: 12.5 mg Dextrose (Dextrose 50% Inj) 0 ml IV STAT PRN; Protocol PRN Reason: Hypoglycemia Protocol Dextrose (Glutose 15) 0 gm PO ONCE PRN; Protocol PRN Reason: Hypoglycemia Protocol Enoxaparin Sodium (Lovenox) 110 mg SC Q12 [facility]; Protocol Last Admin: 03/15/18 09:15 Dose: 110 mg Furosemide (Lasix) 20 mg PO DAILY [facility] Last Admin: 03/15/18 09:16 Dose: 20 mg Glucagon (Glucagen Diagnostic Kit) 0 mg IM STAT PRN; Protocol PRN Reason: Hypoglycemia Protocol Lidocaine (Lidoderm) 1 ea TD DAILY [facility] Last Admin: 03/15/18 09:14 Dose: 1 ea Methylprednisolone (Solu-Medrol) 40 mg IVP Q12 [facility] Oxycodone/Acetaminophen (Percocet 5/325 Mg Tab) 2 tab PO Q4 PRN PRN Reason: Pain, severe (8-10) Stop: 03/17/18 14:45 Pantoprazole Sodium (Protonix Ec Tab) 40 mg PO DAILY [facility] Last Admin: 03/15/18 09:15 Dose: 40 mg Pravastatin Sodium (Pravachol) 10 mg PO HS [facility] Last Admin: 03/14/18 22:17 Dose: Not Given Sitagliptin Phosphate (Januvia) 50 mg PO DAILY [facility] Last Admin: 03/15/18 09:15 Dose: 50 mg - Labs Labs: 03/15/18 04:25 03/15/18 17:30 PT 11.4 Seconds (9.8-13.1) 03/15/18 04:25 INR 1.0 03/15/18 04:25 APTT 25.3 Seconds (25.6-37.1) L 03/15/18 04:25 Attending/Attestation - Attestation I have personally seen and examined this patient.: Yes I have fully participated in the care of the patient.: Yes I have reviewed all pertinent clinical information, including history, physical exam and plan: Yes Notes (Text): Acute Respiratory Failure with Hypoxemia and Hypercapnea sec to Pulm Embolism and Asthma exacerbation Mild Intermittent Asthma - decrease High Flow to 20L/50% FiO2 - taper IV Solumedrol to 40mg q12 - cont Lovenox 1 mg/kg q 12 PVD -hold Pentoxil for now while pt on anticoag to prevent bleed
--- NOTE | 2018-03-15 13:49 | US ---
Date of service: 03/15/2018 PROCEDURE: Bilateral lower extremity venous duplex Doppler. HISTORY: acute PE COMPARISON: None available. TECHNIQUE: Bilateral common femoral, superficial femoral, popliteal and posterior tibial veins were evaluated. Flow was assessed with color Doppler, compressibility, assessment of phasic flow and augmentation response. FINDINGS: Examination limited by patient condition particularly during compression and augmentation. COMMON FEMORAL VEIN: Right CFV: Unremarkable. Left CFV: Unremarkable. SUPERFICIAL FEMORAL VEIN: Right SFV: Unremarkable. Left SFV: Unremarkable. POPLITEAL VEIN: Right Popliteal: Unremarkable. Left Popliteal: Unremarkable. POSTERIOR TIBIAL VEIN: Right PTV: Unremarkable. Left PTV: Unremarkable. OTHER FINDINGS: None. IMPRESSION: Limited study. No evidence of deep venous thrombosis.
--- NOTE | 2018-03-15 14:13 | RAD ---
Date of service: 03/15/2018 HISTORY: eval contrast in hernia COMPARISON: March 14, 2018 abdominal series. March 14, 2018 CT abdomen and pelvis. FINDINGS: BOWEL: Contrast identified in nondistended colon. No visible signs of obstruction or free air. BONES: Normal. OTHER FINDINGS: None. IMPRESSION: No acute findings related to/accounting for the clinical presentation. No significant interval change compared to the prior examination(s).
--- NOTE | 2018-03-15 17:03 | CP.PCM.PN ---
Objective - Vital Signs/Intake and Output Vital Signs (last 24 hours): Temp Pulse Resp BP Pulse Ox 97.5 F L 72 18 144/78 98 03/15/18 16:11 03/15/18 16:11 03/15/18 16:11 03/15/18 16:11 03/15/18 16:11 - Medications Medications: Current Medications Acetaminophen (Tylenol 325mg Tab) 975 mg PO Q8 PRN PRN Reason: Pain, Mild (1-3) Albuterol Sulfate (Albuterol 0.083% Inhal Jerica (2.5 Mg/3 Ml) Ud) 2.5 mg INH RQ4 PRN PRN Reason: Shortness of Breath Albuterol/Ipratropium (Duoneb 3 Mg/0.5 Mg (3 Ml) Ud) 3 ml INH RQ4 PRN PRN Reason: Shortness of Breath Albuterol/Ipratropium (Duoneb 3 Mg/0.5 Mg (3 Ml) Ud) 3 ml INH RQID [facility] Last Admin: 03/15/18 15:16 Dose: 3 ml Carvedilol (Coreg) 12.5 mg PO Q12 [facility] Last Admin: 03/15/18 09:16 Dose: 12.5 mg Dextrose (Dextrose 50% Inj) 0 ml IV STAT PRN; Protocol PRN Reason: Hypoglycemia Protocol Dextrose (Glutose 15) 0 gm PO ONCE PRN; Protocol PRN Reason: Hypoglycemia Protocol Enoxaparin Sodium (Lovenox) 110 mg SC Q12 [facility]; Protocol Last Admin: 03/15/18 09:15 Dose: 110 mg Furosemide (Lasix) 20 mg PO DAILY [facility] Last Admin: 03/15/18 09:16 Dose: 20 mg Glucagon (Glucagen Diagnostic Kit) 0 mg IM STAT PRN; Protocol PRN Reason: Hypoglycemia Protocol Lidocaine (Lidoderm) 1 ea TD DAILY [facility] Last Admin: 03/15/18 09:14 Dose: 1 ea Methylprednisolone (Solu-Medrol) 40 mg IVP Q12 [facility] Oxycodone/Acetaminophen (Percocet 5/325 Mg Tab) 2 tab PO Q4 PRN PRN Reason: Pain, severe (8-10) Stop: 03/17/18 14:45 Pantoprazole Sodium (Protonix Ec Tab) 40 mg PO DAILY [facility] Last Admin: 03/15/18 09:15 Dose: 40 mg Pravastatin Sodium (Pravachol) 10 mg PO HS [facility] Last Admin: 03/14/18 22:17 Dose: Not Given Sitagliptin Phosphate (Januvia) 50 mg PO DAILY [facility] Last Admin: 03/15/18 09:15 Dose: 50 mg - Labs Labs: 03/15/18 04:25 03/15/18 08:42 PT 11.4 Seconds (9.8-13.1) 03/15/18 04:25 INR 1.0 03/15/18 04:25 APTT 25.3 Seconds (25.6-37.1) L 03/15/18 04:25
--- NOTE | 2018-03-15 17:04 | CP.PCM.CON ---
History of Present Illness - History of Present Illness History of Present Illness: Pulmonary consult. 72 y/o F, PMHx Asthma, HTN, DMII, PVD, admitted to [facility], [place] due to increased Abdominal pain, described as sharp, stabbing, moderate intensity 5:10, radiated to R Flank and associated to nausea/vomiting x1, onset 3 weeks [employer], gradually increasing with no relief. Pt was seen on 03/13/18 in the ED for same c/o, CT abdomen was done showing non- incarcerate R sided hernia, Pt was informed and she stated that will f/u with PMD. On 03/14/18, she returned to hospital due to worsening pain. Worsening symptom: Found with PE RUL on CT. Morbid obese, BMI 39.4 Aggravated factor: Movement Pt denied: Fever, chills, diarrhea, urinary symptoms, CP, palpitations, syncope, dizziness, SOB, cough, sick contact, recent travel out of [facility]. Review of Systems - Constitutional Constitutional: Other (negative) - EENT Eyes: Other (negative) Ears: Other (negative) Nose/Mouth/Throat: Other (negative) - Cardiovascular Cardiovascular: Other (negative) - Respiratory Respiratory: Dyspnea on Exertion - Gastrointestinal Gastrointestinal: Abdominal Pain, Nausea, Vomiting, Other (R flank pain) - Genitourinary Genitourinary: Other (negative) - Musculoskeletal Musculoskeletal: Other (negative) - Integumentary Integumentary: Other (negative) - Neurological Neurological: Other (negative) - Psychiatric Psychiatric: Other (negative) - Endocrine Endocrine: Other (morbid obese) - Hematologic/Lymphatic Hematologic: Other (negative) Past Patient History - Past Medical History & Family History Past Medical History?: Yes Pertinent Family History: Unknown - Past Social History Smoking Status: Never Smoked Alcohol: None Drugs: Denies Home Situation {Lives}: With Family - CARDIAC Hx Cardiac Disorders: Yes Hx Hypertension: Yes - PULMONARY Hx Respiratory Disorders: Yes Hx Asthma: Yes - NEUROLOGICAL Hx Neurological Disorder: No - HEENT Hx HEENT Problems: No - RENAL Hx Chronic Kidney Disease: No - ENDOCRINE/METABOLIC Hx Endocrine Disorders: Yes Hx Diabetes Mellitus Type 2: Yes - HEMATOLOGICAL/ONCOLOGICAL Hx Blood Disorders: No Hx AIDS: No Hx Human Immunodeficiency Virus (HIV): No - INTEGUMENTARY Hx Dermatological Problems: No - MUSCULOSKELETAL/RHEUMATOLOGICAL Hx Musculoskeletal Disorders: Yes Hx Falls: Yes - GASTROINTESTINAL Hx Gastrointestinal Disorders: No - GENITOURINARY/GYNECOLOGICAL Hx Genitourinary Disorders: No - PSYCHIATRIC Hx Psychophysiologic Disorder: No Hx Substance Use: No - SURGICAL HISTORY Hx Surgeries: Yes Hx Section: Yes (x2) Other/Comment: right eye surgery - ANESTHESIA Hx Anesthesia: Yes Hx Anesthesia Reactions: No Meds Home Medications: Home Medication List Medication Instructions Recorded Confirmed Type Apixaban [Eliquis] 10 mg PO BID #60 tab 03/18/18 Rx Methylprednisolone [Medrol Dose 4 mg PO ASDIR #21 mg 03/18/18 Rx Pack (21 tabs)] Allergies/Adverse Reactions: Allergies Allergy/AdvReac Type Severity Reaction Status Date / Time No Known Allergies Allergy Verified 07/08/14 11:55 - Medications Medications: Current Medications Acetaminophen (Tylenol 325mg Tab) 975 mg PO Q8 PRN PRN Reason: Pain, Mild (1-3) Albuterol Sulfate (Albuterol 0.083% Inhal Jerica (2.5 Mg/3 Ml) Ud) 2.5 mg INH RQ4 PRN PRN Reason: Shortness of Breath Albuterol/Ipratropium (Duoneb 3 Mg/0.5 Mg (3 Ml) Ud) 3 ml INH RQ4 PRN PRN Reason: Shortness of Breath Albuterol/Ipratropium (Duoneb 3 Mg/0.5 Mg (3 Ml) Ud) 3 ml INH RQID [facility] Last Admin: 03/15/18 15:16 Dose: 3 ml Carvedilol (Coreg) 12.5 mg PO Q12 [facility] Last Admin: 03/15/18 09:16 Dose: 12.5 mg Dextrose (Dextrose 50% Inj) 0 ml IV STAT PRN; Protocol PRN Reason: Hypoglycemia Protocol Dextrose (Glutose 15) 0 gm PO ONCE PRN; Protocol PRN Reason: Hypoglycemia Protocol Enoxaparin Sodium (Lovenox) 110 mg SC Q12 [facility]; Protocol Last Admin: 03/15/18 09:15 Dose: 110 mg Furosemide (Lasix) 20 mg PO DAILY [facility] Last Admin: 03/15/18 09:16 Dose: 20 mg Glucagon (Glucagen Diagnostic Kit) 0 mg IM STAT PRN; Protocol PRN Reason: Hypoglycemia Protocol Lidocaine (Lidoderm) 1 ea TD DAILY [facility] Last Admin: 03/15/18 09:14 Dose: 1 ea Methylprednisolone (Solu-Medrol) 40 mg IVP Q12 [facility] Oxycodone/Acetaminophen (Percocet 5/325 Mg Tab) 2 tab PO Q4 PRN PRN Reason: Pain, severe (8-10) Stop: 03/17/18 14:45 Pantoprazole Sodium (Protonix Ec Tab) 40 mg PO DAILY [facility] Last Admin: 03/15/18 09:15 Dose: 40 mg Pravastatin Sodium (Pravachol) 10 mg PO HS [facility] Last Admin: 03/14/18 22:17 Dose: Not Given Sitagliptin Phosphate (Januvia) 50 mg PO DAILY [facility] Last Admin: 03/15/18 09:15 Dose: 50 mg Physical Exam - Constitutional Appears: No Acute Distress - Head Exam Head Exam: NORMAL INSPECTION - Eye Exam Eye Exam: PERRL - ENT Exam ENT Exam: Normal Exam - Neck Exam Neck exam: Positive for: Normal Inspection - Respiratory Exam Respiratory Exam: Decreased Breath Sounds (mild at bases) - Cardiovascular Exam Cardiovascular Exam: REGULAR RHYTHM - GI/Abdominal Exam GI & Abdominal Exam: Normal Bowel Sounds, Soft Additional comments: R Flank mild tenderness - Extremities Exam Additional comments: Chronic venous stasis changes b/l L/E. - Back Exam Back exam: NORMAL INSPECTION - Neurological Exam Neurological exam: Alert Additional comments: No motor/sensory deficit. - Psychiatric Exam Psychiatric exam: Normal Mood - Skin Skin Exam: Warm Results - Vital Signs Recent Vital Signs: Last Vital Signs Temp 97.5 F L 03/15/18 16:11 Pulse 72 03/15/18 16:11 Resp 18 03/15/18 16:11 BP 144/78 03/15/18 16:11 Pulse Ox 98 03/15/18 16:11 reviewed Lucie - Labs Result Diagrams: 03/16/18 05:27 03/18/18 13:37 Labs: Laboratory Results - last 24 hr 03/15/18 03/15/18 03/15/18 04:25 04:25 04:25 WBC 5.1 RBC 4.27 Hgb 12.5 Hct 38.9 MCV 91.1 MCH 29.3 MCHC 32.2 L RDW 14.7 H Plt Count 206 MPV 8.7 Neut % (Auto) 82.1 H Lymph % (Auto) 15.7 L [place] % (Auto) 1.9 Eos % (Auto) 0.0 Baso % (Auto) 0.3 Neut # (Auto) 4.2 Lymph # (Auto) 0.8 L [place] # (Auto) 0.1 Eos # (Auto) 0.0 Baso # (Auto) 0.0 PT 11.4 INR 1.0 APTT 25.3 L Sodium 141 Potassium 6.1 H Chloride 101 Carbon Dioxide 37 H Anion Gap 9 L BUN 12 Creatinine 0.7 Est GFR ( Amer) > 60 Est GFR (Non-Af Amer) > 60 POC Glucose (mg/dL) Random Glucose 148 H Calcium 9.8 03/15/18 03/15/18 03/15/18 05:16 08:42 10:50 WBC RBC Hgb Hct MCV MCH MCHC RDW Plt Count MPV Neut % (Auto) Lymph % (Auto) [place] % (Auto) Eos % (Auto) Baso % (Auto) Neut # (Auto) Lymph # (Auto) [place] # (Auto) Eos # (Auto) Baso # (Auto) PT INR APTT Sodium 140 Potassium 5.3 H Chloride 101 Carbon Dioxide 37 H Anion Gap 7 L BUN 12 Creatinine 0.7 Est GFR ( Amer) > 60 Est GFR (Non-Af Amer) > 60 POC Glucose (mg/dL) 137 H 123 H Random Glucose 142 H Calcium 9.4 reviewed J.p. - EKG Data EKG comments: reviewed J.P. - Imaging and Cardiology CT scan - chest Status: Report reviewed by me (J.P.) CT scan - abdomen Status: Report reviewed by me (ChrisP.) CT scan - pelvis Status: Report reviewed by me (J.P.) Chest x-ray Status: Report reviewed by me (J.P.) Assessment & Plan (1) Pulmonary embolism on right Status: Acute Priority: High (2) Hypoxemia Status: Acute Priority: High (3) Asthma Status: Acute Priority: High - Assessment and Plan (Free Text) Plan: Continue High Flow O2, FIO2 70%, Duoneb, Solumedrol IV, Albuterol, Lovenox, Lasix and rest of Tx. - Date & Time Date: 03/15/18 Time: 15:00
[2018-03-15 18:13] LABS: BLOOD UREA NITROGEN 17 mg/dl (7-17); CALCIUM 9.7 mg/dL (8.4-10.2); GFR NON-AFRICAN AMERICAN > 60
[2018-03-16] MEDS: Albuterol-Ipratrop 3 mg / 0.5 (3 ml) UD INH SCH ×4 (07:03→19:14)
[2018-03-16 07:04] LABS: BASO % 0.2 % (0.0-2.0); HEMOGLOBIN 12.2 g/dL (12.0-16.0); LYMPH # 0.8 K/uL (1.0-4.3); LYMPH % 10.6 % (20.0-40.0); MEAN CELL VOLUME 89.5 fl (81.0-99.0); MEAN CORPUSCULAR HEMOGLOBIN 29.4 pg (27.0-31.0); MEAN CORPUSCULAR HGB CONC 32.9 g/dL (33.0-37.0); MEAN PLATELET VOLUME 9.2 fl (7.2-11.7); MONO # 0.3 K/uL (0.0-0.8); MONO % 4.1 % (0.0-10.0); NEUT # 6.1 K/uL (1.8-7.0); NEUT % 85.1 % (50.0-75.0); NRBC % 0.1 % (0.0-0.0); RBC 4.14 Mil/uL (3.80-5.20); RED CELL DISTRIBUTION WIDTH 14.9 % (11.5-14.5); WHITE BLOOD COUNT 7.1 K/uL (4.8-10.8)
[2018-03-16 07:36] LABS: BLOOD UREA NITROGEN 23 mg/dl (7-17); CALCIUM 8.9 mg/dL (8.4-10.2); GFR NON-AFRICAN AMERICAN > 60
--- NOTE | 2018-03-16 07:48 | CP.PCM.PN ---
Subjective - Date & Time of Evaluation Date of Evaluation: 03/16/18 Time of Evaluation: 07:46 - Subjective Subjective: General surgery progress note for Dr. Armando covering for Dr. Heike Renee, PGY-2 Pt S & E at bedside at 0720 Pt currently w/o complaints. Tolerating diet. Reports flatus, BM. Denies N & V, F & C. Objective - Vital Signs/Intake and Output Vital Signs (last 24 hours): Temp Pulse Resp BP Pulse Ox 98.0 F 72 18 147/85 96 03/16/18 01:02 03/16/18 01:02 03/16/18 07:03 03/16/18 01:02 03/16/18 01:02 - Medications Medications: Current Medications Acetaminophen (Tylenol 325mg Tab) 975 mg PO Q8 PRN PRN Reason: Pain, Mild (1-3) Albuterol Sulfate (Albuterol 0.083% Inhal Jerica (2.5 Mg/3 Ml) Ud) 2.5 mg INH RQ4 PRN PRN Reason: Shortness of Breath Albuterol/Ipratropium (Duoneb 3 Mg/0.5 Mg (3 Ml) Ud) 3 ml INH RQ4 PRN PRN Reason: Shortness of Breath Albuterol/Ipratropium (Duoneb 3 Mg/0.5 Mg (3 Ml) Ud) 3 ml INH RQID [facility] Last Admin: 03/16/18 07:03 Dose: 3 ml Carvedilol (Coreg) 12.5 mg PO Q12 [facility] Last Admin: 03/15/18 21:30 Dose: 12.5 mg Dextrose (Dextrose 50% Inj) 0 ml IV STAT PRN; Protocol PRN Reason: Hypoglycemia Protocol Dextrose (Glutose 15) 0 gm PO ONCE PRN; Protocol PRN Reason: Hypoglycemia Protocol Enoxaparin Sodium (Lovenox) 110 mg SC Q12 [facility]; Protocol Last Admin: 03/15/18 23:34 Dose: 110 mg Furosemide (Lasix) 20 mg PO DAILY [facility] Last Admin: 03/15/18 09:16 Dose: 20 mg Glucagon (Glucagen Diagnostic Kit) 0 mg IM STAT PRN; Protocol PRN Reason: Hypoglycemia Protocol Lidocaine (Lidoderm) 1 ea TD DAILY [facility] Last Admin: 03/15/18 09:14 Dose: 1 ea Methylprednisolone (Solu-Medrol) 40 mg IVP Q12 [facility] Last Admin: 03/15/18 23:39 Dose: 40 mg Oxycodone/Acetaminophen (Percocet 5/325 Mg Tab) 2 tab PO Q4 PRN PRN Reason: Pain, severe (8-10) Stop: 03/17/18 14:45 Pantoprazole Sodium (Protonix Ec Tab) 40 mg PO DAILY [facility] Last Admin: 03/15/18 09:15 Dose: 40 mg Pravastatin Sodium (Pravachol) 10 mg PO HS [facility] Last Admin: 03/15/18 22:30 Dose: 10 mg Sitagliptin Phosphate (Januvia) 50 mg PO DAILY [facility] Last Admin: 03/15/18 09:15 Dose: 50 mg - Labs Labs: 03/16/18 05:27 03/16/18 05:27 PT 11.4 Seconds (9.8-13.1) 03/15/18 04:25 INR 1.0 03/15/18 04:25 APTT 25.3 Seconds (25.6-37.1) L 03/15/18 04:25 - Constitutional Appears: Non-toxic, No Acute Distress - Head Exam Head Exam: ATRAUMATIC, NORMAL INSPECTION, NORMOCEPHALIC - Eye Exam Eye Exam: EOMI, Normal appearance - ENT Exam ENT Exam: Mucous Membranes Moist, Normal Exam - Neck Exam Neck Exam: Full ROM, Normal Inspection - Respiratory Exam Respiratory Exam: NORMAL BREATHING PATTERN - Cardiovascular Exam Cardiovascular Exam: REGULAR RHYTHM, +S1, +S2 - GI/Abdominal Exam GI & Abdominal Exam: Soft. absent: Distended (obese), Firm, Guarding, Rigid, Tenderness - Extremities Exam Extremities Exam: absent: Normal Inspection (LE w/chronic venous stasis changes B/L) - Neurological Exam Neurological Exam: Alert, Awake, CN II-XII Intact, Normal Gait, Oriented x3 - Psychiatric Exam Psychiatric exam: Normal Affect, Normal Mood - Skin Skin Exam: Dry, Intact, Warm Assessment and Plan - Assessment and Plan (Free Text) Assessment: 72F w/R ventral hernia on CT, ab pain- resolving Plan: KUB with PO contrast progression Tolerating regular diet No surgical intervention at this time Thank you for this consult Thelma, PGY-2
[2018-03-16 08:38] LABS: ABG ALLEN TEST YES; ARTERIAL BLOOD GAS HEMOGLOBIN 12.9 g/dL (11.7-17.4); ARTERIAL BLOOD GAS O2 CAPACITY 17.4 mL/dL (16-24); ARTERIAL BLOOD GAS O2 CONTENT 16.6 ML/dL (15-23); ARTERIAL BLOOD GAS O2 SAT 95.2 % (95-98); ARTERIAL BLOOD GAS PCO2 47 mm/Hg (35-45); ARTERIAL BLOOD GAS PH 7.47 (7.35-7.45); ARTERIAL BLOOD GAS PO2 59 mm/Hg (80-100); ARTERIAL BLOOD GAS TCO2 35.6 mmol/L (22-28)
[2018-03-16] MEDS: Enoxaparin 120 mg Syringe SC SCH ×2 (09:08→21:04)
[2018-03-16] MEDS: MethylPREDNISolone 40 mg Vial IVP SCH ×2 (09:11→21:05)
[2018-03-16] MEDS: Pantoprazole 40 mg EC Tab PO SCH (09:11)
[2018-03-16] MEDS: Lidocaine 5% Patch TD SCH (09:17)
--- NOTE | 2018-03-16 10:29 | CP.PCM.PN ---
<Zafar Hedrick - Last Filed: 03/16/18 11:20> Subjective - Date & Time of Evaluation Date of Evaluation: 03/16/18 Time of Evaluation: 11:00 - Subjective Subjective: Patient resting comfortably on nasal canula speaking with her without any difficulties in full sentences. Denies any complaints this morning. States her appetite has improved and she ate pancakes. Denies any abdominal pain. States she slept well overnight. Denies any chest pain, SOB, N/V. Objective - Vital Signs/Intake and Output Vital Signs (last 24 hours): Temp Pulse Resp BP Pulse Ox 98.2 F 60 18 176/89 H 100 03/16/18 08:13 03/16/18 09:06 03/16/18 08:13 03/16/18 09:07 03/16/18 08:13 - Medications Medications: Current Medications Acetaminophen (Tylenol 325mg Tab) 975 mg PO Q8 PRN PRN Reason: Pain, Mild (1-3) Albuterol Sulfate (Albuterol 0.083% Inhal Jer[place] (2.5 Mg/3 Ml) Ud) 2.5 mg INH RQ4 PRN PRN Reason: Shortness of Breath Albuterol/Ipratropium (Duoneb 3 Mg/0.5 Mg (3 Ml) Ud) 3 ml INH RQ4 PRN PRN Reason: Shortness of Breath Albuterol/Ipratropium (Duoneb 3 Mg/0.5 Mg (3 Ml) Ud) 3 ml INH RQID [facility] Last Admin: 03/16/18 07:03 Dose: 3 ml Carvedilol (Coreg) 12.5 mg PO Q12 [facility] Last Admin: 03/16/18 09:06 Dose: 12.5 mg Dextrose (Dextrose 50% Inj) 0 ml IV STAT PRN; Protocol PRN Reason: Hypoglycemia Protocol Dextrose (Glutose 15) 0 gm PO ONCE PRN; Protocol PRN Reason: Hypoglycemia Protocol Enoxaparin Sodium (Lovenox) 110 mg SC Q12 [facility]; Protocol Last Admin: 03/16/18 09:08 Dose: 110 mg Furosemide (Lasix) 20 mg PO DAILY [facility] Last Admin: 03/16/18 09:07 Dose: 20 mg Glucagon (Glucagen Diagnostic Kit) 0 mg IM STAT PRN; Protocol PRN Reason: Hypoglycemia Protocol Lidocaine (Lidoderm) 1 ea TD DAILY [facility] Last Admin: 03/16/18 09:17 Dose: Not Given Methylprednisolone (Solu-Medrol) 40 mg IVP Q12 [facility] Last Admin: 03/16/18 09:11 Dose: 40 mg Oxycodone/Acetaminophen (Percocet 5/325 Mg Tab) 2 tab PO Q4 PRN PRN Reason: Pain, severe (8-10) Stop: 03/17/18 14:45 Pantoprazole Sodium (Protonix Ec Tab) 40 mg PO DAILY [facility] Last Admin: 03/16/18 09:11 Dose: 40 mg Pravastatin Sodium (Pravachol) 10 mg PO HS [facility] Last Admin: 03/15/18 22:30 Dose: 10 mg Sitagliptin Phosphate (Januvia) 50 mg PO DAILY [facility] Last Admin: 03/16/18 09:07 Dose: 50 mg Sodium Polystyrene Sulfonate (Kayexalate Susp) 30 gm PO ONCE ONE Stop: 03/16/18 10:10 - Labs Labs: 03/16/18 05:27 03/16/18 05:27 PT 11.4 Seconds (9.8-13.1) 03/15/18 04:25 INR 1.0 03/15/18 04:25 APTT 25.3 Seconds (25.6-37.1) L 03/15/18 04:25 - Constitutional Appears: No Acute Distress - Head Exam Head Exam: NORMAL INSPECTION - Eye Exam Eye Exam: Normal appearance Pupil Exam: NORMAL ACCOMODATION - Respiratory Exam Respiratory Exam: absent: Rhonchi, Wheezes Additional comments: decreased breath sounds at bases - Cardiovascular Exam Cardiovascular Exam: REGULAR RHYTHM, +S1, +S2 - GI/Abdominal Exam GI & Abdominal Exam: Soft, Normal Bowel Sounds. absent: Tenderness - Neurological Exam Neurological Exam: Alert, Awake, Oriented x3. absent: CN II-XII Intact - Skin Additional comments: hyperpigmentation lower extremity Assessment and Plan - Assessment and Plan (Free Text) Assessment: 72 y/o F with hx of DMII, HTN, Peripheral artery disease, and Asthma presents to the ED with right sided flank pain found to have Acute PE. 1) Acute Respiratory Failure with Hypoxemia and Hypercapnea sec to Pulm Embolism and Asthma exacerbation Mild Intermittent Asthma - D/C high flow and put on 2 L NC - ABG on room air this morning showed O2 saturation at 95 - taper IV Solumedrol to 40mg q12 - cont Lovenox 1 mg/kg q 12 2) Ventral hernia - Confirmed on CT - Seen by Surgery. No surgical intervention at this time - Pain controlled with medication 3. Asthma (Acute on Chronic) -Continue duoneb QID. -Continue albuterol prn. -Continue to monitor. 4. HTN (Chronic, asymptomatic) -Continue Coreg 12.5 mg PO BID. 5. DMII(Chronic, asymptomatic)) -Continue Januvia 50mg PO QD. -Hypoglycemia protocol in place. 6. Peripheral Artery Disease (Chronic with b/l lower leg hyperpigmentation) - Hold pentoxifylline since jamal is on anticoagulation. To prevent risk of bleeds. - 7. DVT prophylaxis -On therapeutic lovenox. <Ever Penn D - Last Filed: 03/16/18 16:19> Objective - Vital Signs/Intake and Output Vital Signs (last 24 hours): Temp Pulse Resp BP Pulse Ox 97.9 F 73 18 132/85 96 03/16/18 16:18 03/16/18 16:18 03/16/18 16:18 03/16/18 16:18 03/16/18 16:18 - Medications Medications: Current Medications Acetaminophen (Tylenol 325mg Tab) 975 mg PO Q8 PRN PRN Reason: Pain, Mild (1-3) Albuterol Sulfate (Albuterol 0.083% Inhal Jerica (2.5 Mg/3 Ml) Ud) 2.5 mg INH RQ4 PRN PRN Reason: Shortness of Breath Albuterol/Ipratropium (Duoneb 3 Mg/0.5 Mg (3 Ml) Ud) 3 ml INH RQ4 PRN PRN Reason: Shortness of Breath Albuterol/Ipratropium (Duoneb 3 Mg/0.5 Mg (3 Ml) Ud) 3 ml INH RQID [facility] Last Admin: 03/16/18 15:05 Dose: 3 ml Carvedilol (Coreg) 12.5 mg PO Q12 [facility] Last Admin: 03/16/18 09:06 Dose: 12.5 mg Dextrose (Dextrose 50% Inj) 0 ml IV STAT PRN; Protocol PRN Reason: Hypoglycemia Protocol Dextrose (Glutose 15) 0 gm PO ONCE PRN; Protocol PRN Reason: Hypoglycemia Protocol Enoxaparin Sodium (Lovenox) 110 mg SC Q12 [facility]; Protocol Last Admin: 03/16/18 09:08 Dose: 110 mg Furosemide (Lasix) 20 mg PO DAILY [facility] Last Admin: 03/16/18 09:07 Dose: 20 mg Glucagon (Glucagen Diagnostic Kit) 0 mg IM STAT PRN; Protocol PRN Reason: Hypoglycemia Protocol Lidocaine (Lidoderm) 1 ea TD DAILY [facility] Last Admin: 03/16/18 09:17 Dose: Not Given Methylprednisolone (Solu-Medrol) 40 mg IVP Q12 [facility] Last Admin: 03/16/18 09:11 Dose: 40 mg Oxycodone/Acetaminophen (Percocet 5/325 Mg Tab) 2 tab PO Q4 PRN PRN Reason: Pain, severe (8-10) Stop: 03/17/18 14:45 Pantoprazole Sodium (Protonix Ec Tab) 40 mg PO DAILY [facility] Last Admin: 03/16/18 09:11 Dose: 40 mg Pravastatin Sodium (Pravachol) 10 mg PO HS [facility] Last Admin: 03/15/18 22:30 Dose: 10 mg Sitagliptin Phosphate (Januvia) 50 mg PO DAILY [facility] Last Admin: 03/16/18 09:07 Dose: 50 mg - Labs Labs: 03/16/18 05:27 03/16/18 05:27 PT 11.4 Seconds (9.8-13.1) 03/15/18 04:25 INR 1.0 03/15/18 04:25 APTT 25.3 Seconds (25.6-37.1) L 03/15/18 04:25 Attending/Attestation - Attestation I have personally seen and examined this patient.: Yes I have fully participated in the care of the patient.: Yes I have reviewed all pertinent clinical information, including history, physical exam and plan: Yes
[2018-03-16] MEDS ORDERED: Sod Polystyrene Sulf 15 gm/60 ml Susp PO ONE (11:30)
--- NOTE | 2018-03-16 14:51 | CP.PCM.CON ---
Past Patient History - Past Medical History & Family History Past Medical History?: Yes - Past Social History Smoking Status: Never Smoked Alcohol: None Drugs: Denies Home Situation {Lives}: With Family - CARDIAC Hx Cardiac Disorders: Yes Hx Hypertension: Yes - PULMONARY Hx Respiratory Disorders: Yes Hx Asthma: Yes - NEUROLOGICAL Hx Neurological Disorder: No - HEENT Hx HEENT Problems: No - RENAL Hx Chronic Kidney Disease: No - ENDOCRINE/METABOLIC Hx Endocrine Disorders: Yes Hx Diabetes Mellitus Type 2: Yes - HEMATOLOGICAL/ONCOLOGICAL Hx Blood Disorders: No Hx AIDS: No Hx Human Immunodeficiency Virus (HIV): No - INTEGUMENTARY Hx Dermatological Problems: No - MUSCULOSKELETAL/RHEUMATOLOGICAL Hx Musculoskeletal Disorders: Yes Hx Falls: Yes - GASTROINTESTINAL Hx Gastrointestinal Disorders: No - GENITOURINARY/GYNECOLOGICAL Hx Genitourinary Disorders: No - PSYCHIATRIC Hx Psychophysiologic Disorder: No Hx Substance Use: No - SURGICAL HISTORY Hx Surgeries: Yes Hx Section: Yes (x2) Other/Comment: right eye surgery - ANESTHESIA Hx Anesthesia: Yes Hx Anesthesia Reactions: No Meds Allergies/Adverse Reactions: Allergies Allergy/AdvReac Type Severity Reaction Status Date / Time No Known Allergies Allergy Verified 07/08/14 11:55 - Medications Medications: Current Medications Acetaminophen (Tylenol 325mg Tab) 975 mg PO Q8 PRN PRN Reason: Pain, Mild (1-3) Albuterol Sulfate (Albuterol 0.083% Inhal Jerica (2.5 Mg/3 Ml) Ud) 2.5 mg INH RQ4 PRN PRN Reason: Shortness of Breath Albuterol/Ipratropium (Duoneb 3 Mg/0.5 Mg (3 Ml) Ud) 3 ml INH RQ4 PRN PRN Reason: Shortness of Breath Albuterol/Ipratropium (Duoneb 3 Mg/0.5 Mg (3 Ml) Ud) 3 ml INH RQID [facility] Last Admin: 03/16/18 11:31 Dose: 3 ml Carvedilol (Coreg) 12.5 mg PO Q12 [facility] Last Admin: 03/16/18 09:06 Dose: 12.5 mg Dextrose (Dextrose 50% Inj) 0 ml IV STAT PRN; Protocol PRN Reason: Hypoglycemia Protocol Dextrose (Glutose 15) 0 gm PO ONCE PRN; Protocol PRN Reason: Hypoglycemia Protocol Enoxaparin Sodium (Lovenox) 110 mg SC Q12 [facility]; Protocol Last Admin: 03/16/18 09:08 Dose: 110 mg Furosemide (Lasix) 20 mg PO DAILY [facility] Last Admin: 03/16/18 09:07 Dose: 20 mg Glucagon (Glucagen Diagnostic Kit) 0 mg IM STAT PRN; Protocol PRN Reason: Hypoglycemia Protocol Lidocaine (Lidoderm) 1 ea TD DAILY [facility] Last Admin: 03/16/18 09:17 Dose: Not Given Methylprednisolone (Solu-Medrol) 40 mg IVP Q12 [facility] Last Admin: 03/16/18 09:11 Dose: 40 mg Oxycodone/Acetaminophen (Percocet 5/325 Mg Tab) 2 tab PO Q4 PRN PRN Reason: Pain, severe (8-10) Stop: 03/17/18 14:45 Pantoprazole Sodium (Protonix Ec Tab) 40 mg PO DAILY [facility] Last Admin: 03/16/18 09:11 Dose: 40 mg Pravastatin Sodium (Pravachol) 10 mg PO HS [facility] Last Admin: 03/15/18 22:30 Dose: 10 mg Sitagliptin Phosphate (Januvia) 50 mg PO DAILY [facility] Last Admin: 03/16/18 09:07 Dose: 50 mg Results - Vital Signs Recent Vital Signs: Last Vital Signs Temp 98.4 F 03/16/18 12:34 Pulse 72 03/16/18 13:50 Resp 18 03/16/18 12:34 BP 145/83 03/16/18 12:34 Pulse Ox 95 03/16/18 13:50 - Labs Result Diagrams: 03/16/18 05:27 03/16/18 05:27 Labs: Laboratory Results - last 24 hr 03/15/18 03/15/18 03/15/18 15:56 17:30 21:23 WBC RBC Hgb Hct MCV MCH MCHC RDW Plt Count MPV Neut % (Auto) Lymph % (Auto) [place] % (Auto) Eos % (Auto) Baso % (Auto) Neut # (Auto) Lymph # (Auto) [place] # (Auto) Eos # (Auto) Baso # (Auto) pCO2 pO2 HCO3 ABG pH ABG Total CO2 ABG O2 Saturation ABG O2 Content ABG Base Excess ABG Hemoglobin ABG Carboxyhemoglobin POC ABG HHb (Measured) ABG Methemoglobin ABG O2 Capacity [place] Test A-a O2 Difference Hgb O2 Saturation FiO2 Sodium 137 Potassium 5.3 H Chloride 97 L Carbon Dioxide 34 H Anion Gap 11 BUN 17 Creatinine 0.8 Est GFR ( Amer) > 60 Est GFR (Non-Af Amer) > 60 POC Glucose (mg/dL) 239 H 179 H Random Glucose 195 H Calcium 9.7 03/16/18 03/16/18 03/16/18 05:04 05:27 05:27 WBC 7.1 RBC 4.14 Hgb 12.2 Hct 37.0 MCV 89.5 MCH 29.4 MCHC 32.9 L RDW 14.9 H Plt Count 219 MPV 9.2 Neut % (Auto) 85.1 H Lymph % (Auto) 10.6 L [place] % (Auto) 4.1 Eos % (Auto) 0.0 Baso % (Auto) 0.2 Neut # (Auto) 6.1 Lymph # (Auto) 0.8 L [place] # (Auto) 0.3 Eos # (Auto) 0.0 Baso # (Auto) 0.0 pCO2 pO2 HCO3 ABG pH ABG Total CO2 ABG O2 Saturation ABG O2 Content ABG Base Excess ABG Hemoglobin ABG Carboxyhemoglobin POC ABG HHb (Measured) ABG Methemoglobin ABG O2 Capacity [place] Test A-a O2 Difference Hgb O2 Saturation FiO2 Sodium 134 Potassium 5.5 H Chloride 94 L Carbon Dioxide 31 H Anion Gap 15 BUN 23 H Creatinine 0.7 Est GFR ( Amer) > 60 Est GFR (Non-Af Amer) > 60 POC Glucose (mg/dL) 164 H Random Glucose 163 H Calcium 8.9 03/16/18 03/16/18 08:33 11:19 WBC RBC Hgb Hct MCV MCH MCHC RDW Plt Count MPV Neut % (Auto) Lymph % (Auto) [place] % (Auto) Eos % (Auto) Baso % (Auto) Neut # (Auto) Lymph # (Auto) [place] # (Auto) Eos # (Auto) Baso # (Auto) pCO2 47 H pO2 59 L HCO3 32.0 H ABG pH 7.47 H ABG Total CO2 35.6 H ABG O2 Saturation 95.2 ABG O2 Content 16.6 ABG Base Excess 9.2 H ABG Hemoglobin 12.9 ABG Carboxyhemoglobin 2.2 H POC ABG HHb (Measured) 4.6 ABG Methemoglobin 1.6 ABG O2 Capacity 17.4 [place] Test Yes A-a O2 Difference 32.0 Hgb O2 Saturation 91.6 L FiO2 21.0 Sodium Potassium Chloride Carbon Dioxide Anion Gap BUN Creatinine Est GFR ( Amer) Est GFR (Non-Af Amer) POC Glucose (mg/dL) 206 H Random Glucose Calcium Assessment & Plan (1) Pulmonary embolism on right Status: Acute Priority: High (2) Hypoxemia Status: Acute Priority: High (3) Asthma Status: Acute Priority: High
[2018-03-17] MEDS: Albuterol-Ipratrop 3 mg / 0.5 (3 ml) UD INH SCH ×4 (07:31→19:03)
[2018-03-17] MEDS ORDERED: Sod Polystyrene Sulf 15 gm/60 ml Susp PO ONE (08:07)
[2018-03-17] MEDS: Lidocaine 5% Patch TD SCH (08:48)
[2018-03-17] MEDS: Pantoprazole 40 mg EC Tab PO SCH (08:51)
[2018-03-17] MEDS ORDERED: MethylPREDNISolone 40 mg Vial IVP SCH (09:00)
--- NOTE | 2018-03-17 10:29 | CP.PCM.PN ---
<Mckenzie Oseguera - Last Filed: 03/17/18 15:16> Subjective - Date & Time of Evaluation Date of Evaluation: 03/17/18 Time of Evaluation: 10:34 - Subjective Subjective: Patient seen and examined this AM with her at the bedside. Patient is on 2 L of oxygen via NC. Patient was speaking in full sentences, looked comfortabl e, and stated she slept well last night. She denied any flank pain, fever chills, chest pain or shortness of breath. Objective - Vital Signs/Intake and Output Vital Signs (last 24 hours): Temp Pulse Resp BP Pulse Ox 98.6 F 62 18 152/75 H 95 03/17/18 08:14 03/17/18 08:43 03/17/18 08:14 03/17/18 08:44 03/17/18 08:14 - Medications Medications: Current Medications Acetaminophen (Tylenol 325mg Tab) 975 mg PO Q8 PRN PRN Reason: Pain, Mild (1-3) Albuterol Sulfate (Albuterol 0.083% Inhal Jer[place] (2.5 Mg/3 Ml) Ud) 2.5 mg INH RQ4 PRN PRN Reason: Shortness of Breath Albuterol/Ipratropium (Duoneb 3 Mg/0.5 Mg (3 Ml) Ud) 3 ml INH RQ4 PRN PRN Reason: Shortness of Breath Albuterol/Ipratropium (Duoneb 3 Mg/0.5 Mg (3 Ml) Ud) 3 ml INH RQID [facility] Last Admin: 03/17/18 07:31 Dose: 3 ml Apixaban (Eliquis) 10 mg PO BID [facility]; Protocol Last Admin: 03/17/18 10:01 Dose: 10 mg Carvedilol (Coreg) 12.5 mg PO Q12 [facility] Last Admin: 03/17/18 08:43 Dose: 12.5 mg Dextrose (Dextrose 50% Inj) 0 ml IV STAT PRN; Protocol PRN Reason: Hypoglycemia Protocol Dextrose (Glutose 15) 0 gm PO ONCE PRN; Protocol PRN Reason: Hypoglycemia Protocol Furosemide (Lasix) 20 mg PO DAILY [facility] Last Admin: 03/17/18 08:44 Dose: 20 mg Glucagon (Glucagen Diagnostic Kit) 0 mg IM STAT PRN; Protocol PRN Reason: Hypoglycemia Protocol Lidocaine (Lidoderm) 1 ea TD DAILY [facility] Last Admin: 03/17/18 08:48 Dose: 1 ea Methylprednisolone (Solu-Medrol) 40 mg IVP DAILY [facility] Last Admin: 03/17/18 10:02 Dose: 40 mg Oxycodone/Acetaminophen (Percocet 5/325 Mg Tab) 2 tab PO Q4 PRN PRN Reason: Pain, severe (8-10) Stop: 03/17/18 14:45 Pantoprazole Sodium (Protonix Ec Tab) 40 mg PO DAILY [facility] Last Admin: 03/17/18 08:51 Dose: 40 mg Pravastatin Sodium (Pravachol) 10 mg PO HS [facility] Last Admin: 03/16/18 21:06 Dose: 10 mg Sitagliptin Phosphate (Januvia) 50 mg PO DAILY [facility] Last Admin: 03/17/18 08:44 Dose: 50 mg - Labs Labs: 03/16/18 05:27 03/16/18 05:27 PT 11.4 Seconds (9.8-13.1) 03/15/18 04:25 INR 1.0 03/15/18 04:25 APTT 25.3 Seconds (25.6-37.1) L 03/15/18 04:25 - Constitutional Appears: Non-toxic, No Acute Distress - Head Exam Head Exam: ATRAUMATIC, NORMOCEPHALIC - Neck Exam Neck Exam: Full ROM - Respiratory Exam Respiratory Exam: Clear to Ausculation Bilateral - Cardiovascular Exam Cardiovascular Exam: REGULAR RHYTHM, +S1, +S2 - GI/Abdominal Exam GI & Abdominal Exam: Soft, Normal Bowel Sounds. absent: Firm, Guarding, Rigid, Tenderness Additional comments: large pannus Assessment and Plan - Assessment and Plan (Free Text) Assessment: 72 y/o F with hx of DMII, HTN, peripheral artery disease, and asthma presented to the ED with right sided flank pain found to have Acute PE and ventral hernia. 1. Acute Respiratory Failure with Hypoxemia and Hypercapnea secondary to Pulm Embolism/ Asthma exacerbation (Mild intermittent Asthma) -Continue 2L of oxygen NC -Lovenox changed to Eliquis 10 mg BID PO. -Solumedrol decreased to 40mg IVP QD -CT ang: PE in main right upper lobe pulmonary artery; D dimer elevated at 1073. 2. Right flank pain likely due to Ventral Hernia -Continue pain medication regimen -Surgery recommendations appreciated- no surgical interventions at this time given that hernia not obstructed. 3. Asthma (Acute on Chronic) -Continue duoneb QID. -Continue albuterol prn. -Continue to monitor. 4. HTN (Chronic, asymptomatic) -Continue Coreg 12.5 mg PO BID. 5. DMII(Chronic, asymptomatic)) -Continue Januvia 50mg PO QD. -Hypoglycemia protocol in place. 6. Peripheral Artery Disease (Chronic with b/l lower leg hyperpigmentation) -Continue to hold pentoxifylline because patient is currently on anticoagulation. 7. DVT prophylaxis -On Eliquis 10 mg BID PO. <Ever Penn D - Last Filed: 03/17/18 18:52> Objective - Vital Signs/Intake and Output Vital Signs (last 24 hours): Temp Pulse Resp BP Pulse Ox 97.9 F 69 16 162/93 H 97 03/17/18 16:13 03/17/18 16:13 03/17/18 16:13 03/17/18 16:13 03/17/18 16:13 - Medications Medications: Current Medications Acetaminophen (Tylenol 325mg Tab) 975 mg PO Q8 PRN PRN Reason: Pain, Mild (1-3) Albuterol Sulfate (Albuterol 0.083% Inhal [place] (2.5 Mg/3 Ml) Ud) 2.5 mg INH RQ4 PRN PRN Reason: Shortness of Breath Albuterol/Ipratropium (Duoneb 3 Mg/0.5 Mg (3 Ml) Ud) 3 ml INH RQ4 PRN PRN Reason: Shortness of Breath Albuterol/Ipratropium (Duoneb 3 Mg/0.5 Mg (3 Ml) Ud) 3 ml INH RQID [facility] Last Admin: 03/17/18 15:45 Dose: 3 ml Apixaban (Eliquis) 10 mg PO BID [facility]; Protocol Last Admin: 03/17/18 17:41 Dose: 10 mg Carvedilol (Coreg) 12.5 mg PO Q12 [facility] Last Admin: 03/17/18 08:43 Dose: 12.5 mg Dextrose (Dextrose 50% Inj) 0 ml IV STAT PRN; Protocol PRN Reason: Hypoglycemia Protocol Dextrose (Glutose 15) 0 gm PO ONCE PRN; Protocol PRN Reason: Hypoglycemia Protocol Furosemide (Lasix) 20 mg PO DAILY [facility] Last Admin: 03/17/18 08:44 Dose: 20 mg Glucagon (Glucagen Diagnostic Kit) 0 mg IM STAT PRN; Protocol PRN Reason: Hypoglycemia Protocol Lidocaine (Lidoderm) 1 ea TD DAILY [facility] Last Admin: 03/17/18 08:48 Dose: 1 ea Methylprednisolone (Solu-Medrol) 40 mg IVP DAILY [facility] Last Admin: 03/17/18 10:02 Dose: 40 mg Pantoprazole Sodium (Protonix Ec Tab) 40 mg PO DAILY [facility] Last Admin: 03/17/18 08:51 Dose: 40 mg Pravastatin Sodium (Pravachol) 10 mg PO HS [facility] Last Admin: 03/16/18 21:06 Dose: 10 mg Sitagliptin Phosphate (Januvia) 50 mg PO DAILY [facility] Last Admin: 03/17/18 08:44 Dose: 50 mg - Labs Labs: 03/16/18 05:27 03/17/18 10:35 PT 11.4 Seconds (9.8-13.1) 03/15/18 04:25 INR 1.0 03/15/18 04:25 APTT 25.3 Seconds (25.6-37.1) L 03/15/18 04:25 Attending/Attestation - Attestation I have personally seen and examined this patient.: Yes I have fully participated in the care of the patient.: Yes I have reviewed all pertinent clinical information, including history, physical exam and plan: Yes
[2018-03-17 11:09] LABS: BLOOD UREA NITROGEN 29 mg/dl (7-17); CALCIUM 9.2 mg/dL (8.4-10.2); GFR NON-AFRICAN AMERICAN 55
--- NOTE | 2018-03-17 22:30 | CP.PCM.PN ---
Subjective - Date & Time of Evaluation Date of Evaluation: 03/17/18 Time of Evaluation: 14:40 - Subjective Subjective: F/U PE. Pt with no SOB, no CLEMENT. no A/D, ambulating through the lopez. Objective - Vital Signs/Intake and Output Vital Signs (last 24 hours): Temp Pulse Resp BP Pulse Ox 98 F 84 16 163/94 H 95 03/17/18 20:24 03/17/18 21:17 03/17/18 20:24 03/17/18 21:17 03/17/18 20:24 - Medications Medications: Current Medications Acetaminophen (Tylenol 325mg Tab) 975 mg PO Q8 PRN PRN Reason: Pain, Mild (1-3) Albuterol Sulfate (Albuterol 0.083% Inhal [place] (2.5 Mg/3 Ml) Ud) 2.5 mg INH RQ4 PRN PRN Reason: Shortness of Breath Albuterol/Ipratropium (Duoneb 3 Mg/0.5 Mg (3 Ml) Ud) 3 ml INH RQ4 PRN PRN Reason: Shortness of Breath Albuterol/Ipratropium (Duoneb 3 Mg/0.5 Mg (3 Ml) Ud) 3 ml INH RQID [facility] Last Admin: 03/17/18 19:03 Dose: 3 ml Apixaban (Eliquis) 10 mg PO BID [facility]; Protocol Last Admin: 03/17/18 17:41 Dose: 10 mg Carvedilol (Coreg) 12.5 mg PO Q12 [facility] Last Admin: 03/17/18 21:17 Dose: 12.5 mg Dextrose (Dextrose 50% Inj) 0 ml IV STAT PRN; Protocol PRN Reason: Hypoglycemia Protocol Dextrose (Glutose 15) 0 gm PO ONCE PRN; Protocol PRN Reason: Hypoglycemia Protocol Furosemide (Lasix) 20 mg PO DAILY [facility] Last Admin: 03/17/18 08:44 Dose: 20 mg Glucagon (Glucagen Diagnostic Kit) 0 mg IM STAT PRN; Protocol PRN Reason: Hypoglycemia Protocol Lidocaine (Lidoderm) 1 ea TD DAILY [facility] Last Admin: 03/17/18 08:48 Dose: 1 ea Methylprednisolone (Solu-Medrol) 40 mg IVP DAILY [facility] Last Admin: 03/17/18 10:02 Dose: 40 mg Pantoprazole Sodium (Protonix Ec Tab) 40 mg PO DAILY [facility] Last Admin: 03/17/18 08:51 Dose: 40 mg Pravastatin Sodium (Pravachol) 10 mg PO HS [facility] Last Admin: 03/17/18 21:16 Dose: 10 mg Sitagliptin Phosphate (Januvia) 50 mg PO DAILY [facility] Last Admin: 03/17/18 08:44 Dose: 50 mg - Labs Labs: 03/16/18 05:27 03/17/18 10:35 PT 11.4 Seconds (9.8-13.1) 03/15/18 04:25 INR 1.0 03/15/18 04:25 APTT 25.3 Seconds (25.6-37.1) L 03/15/18 04:25 - Constitutional Appears: No Acute Distress - Head Exam Head Exam: NORMAL INSPECTION - Eye Exam Eye Exam: PERRL - ENT Exam ENT Exam: Normal Exam - Neck Exam Neck Exam: Normal Inspection - Respiratory Exam Respiratory Exam: Clear to Ausculation Bilateral - Cardiovascular Exam Cardiovascular Exam: REGULAR RHYTHM - GI/Abdominal Exam GI & Abdominal Exam: Soft, Normal Bowel Sounds - Extremities Exam Additional comments: Chronic venous stasis changes b/l lower extremities. - Back Exam Back Exam: NORMAL INSPECTION - Neurological Exam Neurological Exam: Alert, Oriented x3. absent: Motor Sensory Deficit - Psychiatric Exam Psychiatric exam: Normal Mood - Skin Skin Exam: Warm Assessment and Plan (1) Pulmonary embolism on right Status: Acute (2) Hypoxemia Status: Acute (3) Asthma Status: Acute - Assessment and Plan (Free Text) Plan: Continue Solu_medrol, Duoneb, Eliquis and rest of Tx.
[2018-03-18] MEDS: Albuterol-Ipratrop 3 mg / 0.5 (3 ml) UD INH SCH ×2 (07:27→11:17)
[2018-03-18 09:17] VITALS: BP 153/80; RESP 20; TEMP 97.6
[2018-03-18] MEDS: Pantoprazole 40 mg EC Tab PO SCH (09:17)
[2018-03-18] MEDS: Lidocaine 5% Patch TD SCH (09:18)
--- NOTE | 2018-03-18 11:55 | CP.PCM.PN ---
Objective - Vital Signs/Intake and Output Vital Signs (last 24 hours): Temp Pulse Resp BP Pulse Ox 97.6 F 60 20 153/80 H 99 03/18/18 09:16 03/18/18 09:16 03/18/18 09:16 03/18/18 09:17 03/18/18 09:16 - Medications Medications: Current Medications Acetaminophen (Tylenol 325mg Tab) 975 mg PO Q8 PRN PRN Reason: Pain, Mild (1-3) Albuterol Sulfate (Albuterol 0.083% Inhal [place] (2.5 Mg/3 Ml) Ud) 2.5 mg INH RQ4 PRN PRN Reason: Shortness of Breath Albuterol/Ipratropium (Duoneb 3 Mg/0.5 Mg (3 Ml) Ud) 3 ml INH RQ4 PRN PRN Reason: Shortness of Breath Albuterol/Ipratropium (Duoneb 3 Mg/0.5 Mg (3 Ml) Ud) 3 ml INH RQID [facility] Last Admin: 03/18/18 11:17 Dose: 3 ml Apixaban (Eliquis) 10 mg PO BID [facility]; Protocol Last Admin: 03/18/18 09:18 Dose: 10 mg Carvedilol (Coreg) 12.5 mg PO Q12 [facility] Last Admin: 03/18/18 09:19 Dose: 12.5 mg Dextrose (Dextrose 50% Inj) 0 ml IV STAT PRN; Protocol PRN Reason: Hypoglycemia Protocol Dextrose (Glutose 15) 0 gm PO ONCE PRN; Protocol PRN Reason: Hypoglycemia Protocol Furosemide (Lasix) 20 mg PO DAILY [facility] Last Admin: 03/18/18 09:17 Dose: 20 mg Glucagon (Glucagen Diagnostic Kit) 0 mg IM STAT PRN; Protocol PRN Reason: Hypoglycemia Protocol Methylprednisolone 20 mg/ (Sodium Chloride) 50 mls @ 100 mls/hr IVPB DAILY [facility] Lidocaine (Lidoderm) 1 ea TD DAILY [facility] Last Admin: 03/18/18 09:18 Dose: 1 ea Pantoprazole Sodium (Protonix Ec Tab) 40 mg PO DAILY [facility] Last Admin: 03/18/18 09:17 Dose: 40 mg Pravastatin Sodium (Pravachol) 10 mg PO HS [facility] Last Admin: 03/17/18 21:16 Dose: 10 mg Sitagliptin Phosphate (Januvia) 50 mg PO DAILY [facility] Last Admin: 03/18/18 09:17 Dose: 50 mg - Labs Labs: 03/16/18 05:27 03/17/18 10:35 PT 11.4 Seconds (9.8-13.1) 03/15/18 04:25 INR 1.0 03/15/18 04:25 APTT 25.3 Seconds (25.6-37.1) L 03/15/18 04:25
[2018-03-18 12:05] VITALS: PULSE 90; O2SAT 95
--- NOTE | 2018-03-18 12:39 | CP.PCM.DIS ---
<Mckenzie Oseguera - Last Filed: 03/18/18 13:46> Provider - Provider Date of Admission: 03/14/18 17:58 Attending physician: Ever Penn MD Time Spent in preparation of Discharge (in minutes): 30 Hospital Course - Lab Results Lab Results: Most Recent Lab Values WBC 7.1 K/uL (4.8-10.8) 03/16/18 05:27 RBC 4.14 Mil/uL (3.80-5.20) 03/16/18 05:27 Hgb 12.2 g/dL (12.0-16.0) 03/16/18 05:27 Hct 37.0 % (34.0-47.0) 03/16/18 05:27 MCV 89.5 fl (81.0-99.0) 03/16/18 05:27 MCH 29.4 pg (27.0-31.0) 03/16/18 05:27 MCHC 32.9 g/dL (33.0-37.0) L 03/16/18 05:27 RDW 14.9 % (11.5-14.5) H 03/16/18 05:27 Plt Count 219 K/uL (130-400) 03/16/18 05:27 MPV 9.2 fl (7.2-11.7) 03/16/18 05:27 Neut % (Auto) 85.1 % (50.0-75.0) H 03/16/18 05:27 Lymph % (Auto) 10.6 % (20.0-40.0) L 03/16/18 05:27 [place] % (Auto) 4.1 % (0.0-10.0) 03/16/18 05:27 Eos % (Auto) 0.0 % (0.0-4.0) 03/16/18 05:27 Baso % (Auto) 0.2 % (0.0-2.0) 03/16/18 05:27 Neut # (Auto) 6.1 K/uL (1.8-7.0) 03/16/18 05:27 Lymph # (Auto) 0.8 K/uL (1.0-4.3) L 03/16/18 05:27 [place] # (Auto) 0.3 K/uL (0.0-0.8) 03/16/18 05:27 Eos # (Auto) 0.0 K/uL (0.0-0.7) 03/16/18 05:27 Baso # (Auto) 0.0 K/uL (0.0-0.2) 03/16/18 05:27 PT 11.4 Seconds (9.8-13.1) 03/15/18 04:25 INR 1.0 03/15/18 04:25 APTT 25.3 Seconds (25.6-37.1) L 03/15/18 04:25 D-Dimer, Quantitative 1073 ng/mlDDU (0-230) H 03/14/18 15:02 pCO2 47 mm/Hg (35-45) H 03/16/18 08:33 pO2 59 mm/Hg (80-100) L 03/16/18 08:33 HCO3 32.0 mmol/L (21-28) H 03/16/18 08:33 ABG pH 7.47 (7.35-7.45) H 03/16/18 08:33 ABG Total CO2 35.6 mmol/L (22-28) H 03/16/18 08:33 ABG O2 Saturation 95.2 % (95-98) 03/16/18 08:33 ABG O2 Content 16.6 ML/dL (15-23) 03/16/18 08:33 ABG Base Excess 9.2 mmol/L (-2.0-3.0) H 03/16/18 08:33 ABG Hemoglobin 12.9 g/dL (11.7-17.4) 03/16/18 08:33 ABG Carboxyhemoglobin 2.2 % (0.5-1.5) H 03/16/18 08:33 POC ABG HHb (Measured) 4.6 % (0.0-5.0) 03/16/18 08:33 ABG Methemoglobin 1.6 % (0.0-3.0) 03/16/18 08:33 ABG O2 Capacity 17.4 mL/dL (16-24) 03/16/18 08:33 Chema Test Yes 03/16/18 08:33 ABG Potassium 4.7 mmol/L (3.6-5.2) 03/14/18 12:33 A-a O2 Difference 32.0 mm/Hg 03/16/18 08:33 Hgb O2 Saturation 91.6 % (95.0-98.0) L 03/16/18 08:33 Sodium 137.0 mmol/L (132-148) 03/14/18 12:33 Chloride 103.0 mmol/L (98-107) 03/14/18 12:33 Glucose 113 mg/dL (65-105) H 03/14/18 12:33 Lactate 0.4 mmol/L (0.7-2.1) L 03/14/18 12:33 FiO2 21.0 % 03/16/18 08:33 Blood Gas Comments Room air,,,,rb 03/14/18 12:33 Crit Value Read Back N 03/14/18 12:33 Sodium 138 mmol/l (132-148) 03/17/18 10:35 Potassium 4.3 MMOL/L (3.6-5.0) 03/17/18 10:35 Chloride 97 mmol/L (98-107) L 03/17/18 10:35 Carbon Dioxide 33 mmol/L (22-30) H 03/17/18 10:35 Anion Gap 12 (10-20) 03/17/18 10:35 BUN 29 mg/dl (7-17) H 03/17/18 10:35 Creatinine 1.0 mg/dl (0.7-1.2) 03/17/18 10:35 Est GFR ( Amer) > 60 03/17/18 10:35 Est GFR (Non-Af Amer) 55 03/17/18 10:35 POC Glucose (mg/dL) 180 mg/dL (65-110) H 03/18/18 11:36 Random Glucose 159 mg/dL (65-105) H 03/17/18 10:35 Calcium 9.2 mg/dL (8.4-10.2) 03/17/18 10:35 Total Bilirubin 0.3 mg/dl (0.2-1.3) 03/14/18 10:18 AST 22 U/L (14-36) 03/14/18 10:18 ALT 23 U/L (9-52) 03/14/18 10:18 Alkaline Phosphatase 115 U/L (38-126) 03/14/18 10:18 Total Protein 7.4 G/DL (6.3-8.2) 03/14/18 10:18 Albumin 3.7 g/dL (3.5-5.0) 03/14/18 10:18 Globulin 3.6 gm/dL (2.2-3.9) 03/14/18 10:18 Albumin/Globulin Ratio 1.0 (1.0-2.1) 03/14/18 10:18 Arterial Blood Potassium 4.7 mmol/L (3.6-5.2) 03/14/18 12:33 - Hospital Course Hospital Course: 72 y/o F with hx of DMII, HTN, peripheral artery disease, and Asthma who presented to the ED with complaints of right sided flank pain. Patient was found to be in acute respiratory failure, hypoxemia, and hypercapnea secondary to pulmonary embolism. She was started on therapeuric lovenox for the PE, given high flow oxygen, and then switched to Eliquis 10mg BID PO. Since then, high flow was discontinued, and patient was placed on oxygen via NC. She was also found to have ventral hernia, which was without obstruction. Surgical team recommended no interventions. She was kept NPO, given a medication regimen for pain, and her diet was slowly advanced. Patient was seen this AM, denied any chest pain, shortness of breath. An inital evaluation of her saturation, showed desaturation below 60% on room air, which returned to 100% when oxygen was given. It was likely due to cold digits because physical therapy evaluated the patient while ambulating, and her o2 saturation decreased to 93-96% on room air. Patient will be discharged on the followin. Acute Respiratory Failure with Hypoxemia and Hypercapnea secondary to Pulm Embolism/ Asthma exacerbation (Mild intermittent Asthma) -Eliquis 10 mg BID PO -Medrol dose pack 2. Ventral Hernia - No surgical interventions at this time given that hernia not obstructed. 3. Asthma (Acute on Chronic) -Fluticasone/Umedclidin/Vilanter 4. HTN (Chronic, asymptomatic) -Coreg 12.5 mg PO BID. 5. DMII(Chronic, asymptomatic)) - Januvia 50mg PO QD. 6. Peripheral Artery Disease (Chronic with b/l lower leg hyperpigmentation) -Pentoxifylline: 400mg TID. Discharge Exam - Head Exam Head Exam: ATRAUMATIC, NORMOCEPHALIC - Neck Exam Neck exam: Full Rom - Respiratory Exam Respiratory Exam: Clear to PA & Lateral - Cardiovascular Exam Cardiovascular Exam: REGULAR RHYTHM, +S1, +S2 - GI/Abdominal Exam GI & Abdominal Exam: Normal Bowel Sounds, Soft. absent: Distended, Firm, Guarding, Tenderness Additional comments: large pannus - Back Exam Additional comments: hyperpigmentation of b/l lower legs with tenderness to dorsal aspect of left lower leg; distal pulses present b/l - Neurological Exam Neurological exam: Alert - Psychiatric Exam Psychiatric exam: Normal Affect, Normal Mood Discharge Plan - Discharge Medications Prescriptions: RX: Apixaban [Eliquis] 10 mg PO BID #60 tab Methylprednisolone [Medrol Dose Pack (21 tabs)] 4 mg PO ASDIR #21 mg - Follow Up Plan Condition: FAIR Disposition: HOME/ ROUTINE Instructions: Asthma, Adult (DC), Pulmonary Embolism (Blood Clot in the Lungs) (DC) Additional Instructions: hacer lesa con el en 1 semana. Referrals: Taiwo Bagley MD [Staff Provider] - <Ever Penn - Last Filed: 03/18/18 13:52> Provider - Provider Date of Admission: 03/14/18 17:58 Attending physician: Ever Penn MD Hospital Course - Lab Results Lab Results: Most Recent Lab Values WBC 7.1 K/uL (4.8-10.8) 03/16/18 05:27 RBC 4.14 Mil/uL (3.80-5.20) 03/16/18 05:27 Hgb 12.2 g/dL (12.0-16.0) 03/16/18 05:27 Hct 37.0 % (34.0-47.0) 03/16/18 05:27 MCV 89.5 fl (81.0-99.0) 03/16/18 05:27 MCH 29.4 pg (27.0-31.0) 03/16/18 05:27 MCHC 32.9 g/dL (33.0-37.0) L 03/16/18 05:27 RDW 14.9 % (11.5-14.5) H 03/16/18 05:27 Plt Count 219 K/uL (130-400) 03/16/18 05:27 MPV 9.2 fl (7.2-11.7) 03/16/18 05:27 Neut % (Auto) 85.1 % (50.0-75.0) H 03/16/18 05:27 Lymph % (Auto) 10.6 % (20.0-40.0) L 03/16/18 05:27 [place] % (Auto) 4.1 % (0.0-10.0) 03/16/18 05:27 Eos % (Auto) 0.0 % (0.0-4.0) 03/16/18 05:27 Baso % (Auto) 0.2 % (0.0-2.0) 03/16/18 05:27 Neut # (Auto) 6.1 K/uL (1.8-7.0) 03/16/18 05:27 Lymph # (Auto) 0.8 K/uL (1.0-4.3) L 03/16/18 05:27 [place] # (Auto) 0.3 K/uL (0.0-0.8) 03/16/18 05:27 Eos # (Auto) 0.0 K/uL (0.0-0.7) 03/16/18 05:27 Baso # (Auto) 0.0 K/uL (0.0-0.2) 03/16/18 05:27 PT 11.4 Seconds (9.8-13.1) 03/15/18 04:25 INR 1.0 03/15/18 04:25 APTT 25.3 Seconds (25.6-37.1) L 03/15/18 04:25 D-Dimer, Quantitative 1073 ng/mlDDU (0-230) H 03/14/18 15:02 pCO2 47 mm/Hg (35-45) H 03/16/18 08:33 pO2 59 mm/Hg (80-100) L 03/16/18 08:33 HCO3 32.0 mmol/L (21-28) H 03/16/18 08:33 ABG pH 7.47 (7.35-7.45) H 03/16/18 08:33 ABG Total CO2 35.6 mmol/L (22-28) H 03/16/18 08:33 ABG O2 Saturation 95.2 % (95-98) 03/16/18 08:33 ABG O2 Content 16.6 ML/dL (15-23) 03/16/18 08:33 ABG Base Excess 9.2 mmol/L (-2.0-3.0) H 03/16/18 08:33 ABG Hemoglobin 12.9 g/dL (11.7-17.4) 03/16/18 08:33 ABG Carboxyhemoglobin 2.2 % (0.5-1.5) H 03/16/18 08:33 POC ABG HHb (Measured) 4.6 % (0.0-5.0) 03/16/18 08:33 ABG Methemoglobin 1.6 % (0.0-3.0) 03/16/18 08:33 ABG O2 Capacity 17.4 mL/dL (16-24) 03/16/18 08:33 [place] Test Yes 03/16/18 08:33 ABG Potassium 4.7 mmol/L (3.6-5.2) 03/14/18 12:33 A-a O2 Difference 32.0 mm/Hg 03/16/18 08:33 Hgb O2 Saturation 91.6 % (95.0-98.0) L 03/16/18 08:33 Sodium 137.0 mmol/L (132-148) 03/14/18 12:33 Chloride 103.0 mmol/L (98-107) 03/14/18 12:33 Glucose 113 mg/dL (65-105) H 03/14/18 12:33 Lactate 0.4 mmol/L (0.7-2.1) L 03/14/18 12:33 FiO2 21.0 % 03/16/18 08:33 Blood Gas Comments Room air,,,,rb 03/14/18 12:33 Crit Value Read Back N 03/14/18 12:33 Sodium 138 mmol/l (132-148) 03/17/18 10:35 Potassium 4.3 MMOL/L (3.6-5.0) 03/17/18 10:35 Chloride 97 mmol/L (98-107) L 03/17/18 10:35 Carbon Dioxide 33 mmol/L (22-30) H 03/17/18 10:35 Anion Gap 12 (10-20) 03/17/18 10:35 BUN 29 mg/dl (7-17) H 03/17/18 10:35 Creatinine 1.0 mg/dl (0.7-1.2) 03/17/18 10:35 Est GFR ( Amer) > 60 03/17/18 10:35 Est GFR (Non-Af Amer) 55 03/17/18 10:35 POC Glucose (mg/dL) 180 mg/dL (65-110) H 03/18/18 11:36 Random Glucose 159 mg/dL (65-105) H 03/17/18 10:35 Calcium 9.2 mg/dL (8.4-10.2) 03/17/18 10:35 Total Bilirubin 0.3 mg/dl (0.2-1.3) 03/14/18 10:18 AST 22 U/L (14-36) 03/14/18 10:18 ALT 23 U/L (9-52) 03/14/18 10:18 Alkaline Phosphatase 115 U/L (38-126) 03/14/18 10:18 Total Protein 7.4 G/DL (6.3-8.2) 03/14/18 10:18 Albumin 3.7 g/dL (3.5-5.0) 03/14/18 10:18 Globulin 3.6 gm/dL (2.2-3.9) 03/14/18 10:18 Albumin/Globulin Ratio 1.0 (1.0-2.1) 03/14/18 10:18 Arterial Blood Potassium 4.7 mmol/L (3.6-5.2) 03/14/18 12:33 Attending/Attestation - Attestation I have personally seen and examined this patient.: Yes I have fully participated in the care of the patient.: Yes I have reviewed all pertinent clinical information, including history, physical exam and plan: Yes
[2018-03-18 14:00] LABS: BLOOD UREA NITROGEN 24 mg/dl (7-17); CALCIUM 9.1 mg/dL (8.4-10.2); GFR NON-AFRICAN AMERICAN > 60
[2018-03-18] MEDS ORDERED: Fluticasone-Salmeterol 500-50mcg Diskus IH SCH (21:00)
[2018-03-19] MEDS ORDERED: methylPREDNISolone 20 MG in Sodium Chloride 0.9% 50 ML IVPB SCH (09:00)
[2018-03-19] MEDS ORDERED: MethylPREDNISolone 40 mg Vial IVP SCH (09:00)
[2018-03-19 23:21] LABS: B2 GLYCOPROTEIN I AB(IGA) <9 SAU (<=20); B2 GLYCOPROTEIN I AB(IGG) <9 SGU (<=20); B2 GLYCOPROTEIN I AB(IGM) <9 SMU (<=20)
[2018-03-20 03:05] LABS: CARDIOLIPIN AB (IGA) <11 APL (<=11); CARDIOLIPIN AB (IGG) <14 GPL (<=14); CARDIOLIPIN AB (IGM) <12 MPL (<=12)
== END 2018-03-18 14:54 | disposition home or self-care (01) | DRG 175 ==
LOC: H.ER 09:53 → H.ERHOLD 13:46 → OBSVTOIN 17:58 → H.TEL 18:04
PROC: 3E0F7GC Introduction of Other Therapeutic Substance into Respiratory Tract, Via Natural or Artificial Opening (ICD-10-PCS; principal; 2018-03-14)
DX: I26.99 Other pulmonary embolism without acute cor pulmonale (principal); J96.01 Acute respiratory failure with hypoxia; J96.02 Acute respiratory failure with hypercapnia; J45.21 Mild intermittent asthma with (acute) exacerbation; K43.9 Ventral hernia without obstruction or gangrene; K59.00 Constipation, unspecified; W01.0XXA Fall on same level from slipping, tripping and stumbling without subsequent striking against object, initial encounter; E66.01 Morbid (severe) obesity due to excess calories; Z68.39 Body mass index [BMI] 39.0-39.9, adult; Z79.01 Long term (current) use of anticoagulants; Z79.84 Long term (current) use of oral hypoglycemic drugs; W06.XXXD Fall from bed, subsequent encounter; M54.9 Dorsalgia, unspecified; R10.9 Unspecified abdominal pain; E11.51 Type 2 diabetes mellitus with diabetic peripheral angiopathy without gangrene; E78.5 Hyperlipidemia, unspecified; I10 Essential (primary) hypertension